=== PATIENT | female | born 1965 | race Caucasian/White ===

== ENCOUNTER 2021-04-02 08:52 | Emergency (ER) | payer MEDICARE, MEDICAID, SELFPAY ==
--- NOTE | ~2021-04-02 | XR_ITS ---
XR knee LT min 4V 04/02/2021 09:44 INDICATION: Left knee pain PROCEDURE: 5 views left knee COMPARISON: No prior studies for comparison. FINDINGS: Fracture, dislocation or subluxation is not identified. No significant joint effusion. The soft tissues appear within normal limits. No foreign bodies are identified. IMPRESSION: 1: NO ACUTE BONE OR JOINT ABNORMALITY IDENTIFIED. Reviewed, dictated and finalized at location A.
--- NOTE | 2021-04-02 09:12 | ED.LOWEXIN ---
HPI - Extremity Injury (Lower) General Chief Complaint: Extremity Injury, Lower Stated Complaint: Lt knee pain Time Seen by Provider: 04/02/21 09:12 Source: patient and RN notes reviewed History of Present Illness HPI Narrative: Patient is a 55-year-old female who presents the urgent care with complaints of left knee pain. Patient states approximately 2 weeks ago she fell at home, on a concrete floor with the brunt of her weight on the left knee. Patient states that she has been taking holistic pain medication . Patient denies of any new onset of swelling or fevers. States that the pain is only exacerbated with weightbearing/ambulating activities. No other acute complaints. No acute distress noted. Patient aware of the plan of care. Some parts of this dictation were generated by voice recognition software and may contain typographical and/or grammatical inaccuracies. Related Data Home Medications Medication Instructions Recorded Confirmed albuterol sulfate [Ventolin HFA] 2 puff INHALATION Q8H PRN 04/02/21 04/02/21 atorvastatin 10 mg PO DAILY 04/02/21 04/02/21 lamotrigine 200 mg PO DAILY 04/02/21 04/02/21 meloxicam 15 mg PO DAILY 04/02/21 04/02/21 omeprazole 40 mg PO DAILY 04/02/21 04/02/21 tiotropium bromide [Spiriva with 18 mcg INHALATION DAILY 04/02/21 04/02/21 HandiHaler] valsartan-hydrochlorothiazide 1 tablet PO DAILY 04/02/21 04/02/21 venlafaxine 150 mg PO DAILY 04/02/21 04/02/21 Allergies Allergy/AdvReac Type Severity Reaction Status Date / Time adhesive tape Allergy Unknown Unknown Verified 04/02/21 09:33 diclofenac Allergy Unknown Unknown Verified 04/02/21 09:33 hyoscyamine Allergy Unknown Unknown Verified 04/02/21 09:33 latex Allergy Unknown Rash Verified 04/02/21 09:33 levofloxacin Allergy Unknown Rash Verified 04/02/21 09:33 phenazopyridine Allergy Unknown Unknown Verified 04/02/21 09:33 Review of Systems Review of Systems: Narrative: CONSTITUTIONAL: Denies fever, chills, or sweats. EYES: Denies visual changes, redness, or discharge. ENT: Denies rhinorrhea, congestion, sore throat, or otalgia. CARDIOVASCULAR: Denies chest pain, palpitations, or edema. RESPIRATORY: Denies cough or dyspnea. GASTROINTESTINAL: Denies abdominal pain, nausea, vomiting, or diarrhea. GENITOURINARY: Denies dysuria or hematuria. SKIN: Denies rash or itching. MUSCULOSKELETAL: Reports of anterior left knee pain NEUROLOGIC: Denies headache, numbness, or weakness. All other systems reviewed are negative, except as documented in HPI. [facility] Family History Family History (Updated 02/21/19 @ 08:28 by DOCTOR UNKNOWN) Mother Hypertension Family history of arthritis Sibling Patient's sister is in good health Family history of colitis Family history of malignant neoplasm of bone Patient's sister is Father Family history of malignant neoplasm Social History Social History Alcohol intake: current Comments At the time of my signature, I reviewed and agree with the nursing past medical, surgical, social, and family history. There is no relevant family history pertinent to the patient complaint. Exam Narrative: Exam Narrative: GENERAL: This is a well-nourished, well-developed patient, in no apparent distress. HEAD: normocephalic, atraumatic. EYES: PERRL. Sclera clear/white. Vision is grossly intact. EARS: External ears normal NOSE: External nose normal with no obvious nasal discharge, nares without redness, no rhinorrhea. THROAT: Mucous membranes moist NECK: Neck supple CARDIOVASCULAR: Regular rate and rhythm without murmurs, gallops, or rubs. RESPIRATORY: Clear to auscultation. Breath sounds equal bilaterally. No wheezes, rales, or rhonchi. SKIN: warm, intact with no suspicious lesions or rash, good texture and turgor. NEURO: awake, alert, and oriented to person, place and time. There were no obvious focal neurologic abnormalities. EXTREMITIES: Moderate tenderness to the left anterior patella without any ob
[2021-04-02 09:15] VITALS: BP 155/88; PULSE 86; RESP 20; TEMP 36.7; O2SAT 100
[2021-04-02 09:46] VITALS: BP 155/88; PULSE 86; RESP 20; TEMP 36.7; O2SAT 100
== END 2021-04-02 10:03 | disposition home or self-care (01) ==
PROVIDERS: Emergency Provider Nurse Practitioner Family; PCP Family Medicine
DX: S80.02XA Contusion of left knee, initial encounter (principal); W19.XXXA Unspecified fall, initial encounter; E78.00 Pure hypercholesterolemia, unspecified; I10 Essential (primary) hypertension; K21.9 Gastro-esophageal reflux disease without esophagitis; F41.9 Anxiety disorder, unspecified; F31.9 Bipolar disorder, unspecified
CPT/HCPCS: 73564; 99213; G0463

== ENCOUNTER 2023-04-23 12:14 | Emergency (ER) | payer OTHER, MEDICAID, SELFPAY ==
[2023-04-23 12:23] VITALS: BP 136/90; PULSE 90; RESP 16; TEMP 36.3; O2SAT 99
--- NOTE | 2023-04-23 13:09 | ED.GENADULT ---
HPI - General Adult General Chief complaint: Ear Stated complaint: Left Ear Pain Source: patient Mode of arrival: ambulatory Limitations: no limitations History of Present Illness HPI narrative: Patient presents for evaluation of left sided ear pain for the past 4 days. She indicates she woke from sleep with her symptoms. She reports hearing loss on the left. She has tinnitus as well. She does not appreciate any drainage. No fever, chills, nausea, vomiting. She smokes a half pack per day. She has had allergy symptoms that include sinus congestion and rhinorrhea, both of which preceded the left ear pain. Related Data Home Medications Medication Instructions Recorded Confirmed albuterol sulfate 90 mcg/actuation 2 puff inhalation Q8H PRN 04/02/21 04/02/21 aerosol inhaler (Ventolin HFA) Shortness Of Breath Or Wheezing atorvastatin 10 mg tablet 10 mg PO DAILY 04/02/21 04/02/21 lamotrigine 200 mg tablet 200 mg PO DAILY 04/02/21 04/02/21 meloxicam 15 mg tablet 15 mg PO DAILY 04/02/21 04/02/21 omeprazole 40 mg capsule,delayed 40 mg PO DAILY 04/02/21 04/02/21 release tiotropium bromide 18 mcg capsule 18 mcg inhalation DAILY 04/02/21 04/02/21 with inhalation device (Spiriva with HandiHaler) valsartan 320 1 tablet PO DAILY 04/02/21 04/02/21 mg-hydrochlorothiazide 25 mg tablet venlafaxine 150 mg 150 mg PO DAILY 04/02/21 04/02/21 capsule,extended release 24 hr vitamin E (dl, acetate) 180 mg 400 unit PO DAILY 04/02/21 04/02/21 (400 unit) capsule Allergies Allergy/AdvReac Type Severity Reaction Status Date / Time adhesive tape Allergy Unknown Unknown Verified 04/02/21 09:33 diclofenac Allergy Unknown Unknown Verified 04/02/21 09:33 hyoscyamine Allergy Unknown Unknown Verified 04/02/21 09:33 latex Allergy Unknown Rash Verified 04/02/21 09:33 levofloxacin Allergy Unknown Rash Verified 04/02/21 09:33 phenazopyridine Allergy Unknown Unknown Verified 04/02/21 09:33 Review of Systems Review of Systems: CONSTITUTIONAL: Denies fever, chills, or sweats. EYES: Denies visual changes, redness, or discharge. ENT: Reports sinus congestion and rhinorrhea. Reports left-sided ear pain, tinnitus, and hearing loss CARDIOVASCULAR: Denies chest pain, palpitations, or edema. RESPIRATORY: Denies cough or dyspnea. GASTROINTESTINAL: Denies abdominal pain, nausea, vomiting, or diarrhea. GENITOURINARY: Denies dysuria or hematuria. SKIN: Denies rash or itching. MUSCULOSKELETAL: Denies back pain, joint pain, or myalgia. NEUROLOGIC: Denies headache, numbness, dizziness, or weakness. PSYCHIATRIC: Denies anxiety or depression. PMFSH Past Medical History Medical History No pertinent past medical history Surgical History Surgical History No pertinent past surgical history Family History Family History Mother Hypertension Family history of arthritis Sibling Patient's sister is in good health Family history of colitis Family history of malignant neoplasm of bone Patient's sister is Father Family history of malignant neoplasm Social History Social History Smoking packs per day: 0.5 Smoking cigarettes per day: 10.0 Smoking status: Current every day smoker Alcohol intake: current Substance use: never Gender identity (if verbalized by the patient): Female Exam Narrative: GENERAL: Well-appearing, well-nourished, and in no acute distress. HEAD: Normocephalic, atraumatic. EYES: PERRLA and EOMI. ENT: Nares clear, no rhinorrhea or epistaxis. Mucous membranes moist. Oropharynx without tonsillar hypertrophy exudate or other lesions. There is clear fluid in the left ear canal which obscures visualization of the left tympanic membrane. NECK: Supple. No adenopathy or
== END 2023-04-23 13:20 | disposition home or self-care (01) ==
PROVIDERS: Emergency Provider Nurse Practitioner
DX: H66.92 Otitis media, unspecified, left ear (principal); H72.92 Unspecified perforation of tympanic membrane, left ear; F17.210 Nicotine dependence, cigarettes, uncomplicated
CPT/HCPCS: 99213; G0463

== ENCOUNTER 2023-06-27 15:01 | Outpatient (CLI) | payer OTHER, MEDICAID, SELFPAY ==
--- NOTE | ~2023-06-27 | XR_ITS ---
XR hip RT min 2V 06/27/2023 15:23 Indication: Right hip pain Procedure: 2 views right hip Comparison: No prior studies for comparison. Findings: There is a nondisplaced fracture involving the acetabulum of the right pelvis. Osteopenia. No other definite fracture is identified. Consider correlation with CT. There is an IUD in the pelvis . Impression: 1: Nondisplaced fracture of the right acetabulum. Consider correlation with CT. Reviewed, dictated and finalized at location B. Impression: 1: Nondisplaced fracture of the right acetabulum. Consider correlation with CT.
[2023-06-27 19:52] LABS: Vitamin D 25 Hydroxy 34.4 ng/mL
== END 2023-06-27 15:02 | disposition home or self-care (01) ==
PROVIDERS: PCP Nurse Practitioner Adult Health; Visit Provider Nurse Practitioner Adult Health
DX: S32.491A Other specified fracture of right acetabulum, initial encounter for closed fracture (principal); E55.9 Vitamin D deficiency, unspecified; M25.551 Pain in right hip
CPT/HCPCS: 36415; 73502; 82306

== ENCOUNTER 2023-06-29 13:09 | Outpatient (CLI) | payer OTHER, MEDICAID, SELFPAY ==
[2023-06-29 19:28] LABS: Appearance Urine Cloudy (Clear); Bacteria Urine 4+ /hpf; Bilirubin Urine Negative (Negative); Blood Urine Negative (Negative); Color Urine Yellow (Yellow); Glucose Urine UA Negative (Negative); Ketones Urine Negative (Negative); Leukocyte Esterase Ur 3+ LEU/UL (NEGATIVE); Nitrate Urine Positive (Negative); Non Pathogenic Casts 0-2; Protein Urine Negative (Negative); RBC Urine 0-2 /hpf (0-2); Specific Grav Ur 1.008 (1.001-1.035); Squamous Epithelial Cell Urine None seen /hpf (Few); Urobilinogen Urine 0.2 mg/dL (<2.0); WBC Urine 51-100 /hpf (0-3); pH Urine 7.5 (5.0-9.0)
[2023-06-29 19:31] LABS: Add Urine Microscopic? YES
== END 2023-06-29 13:10 | disposition home or self-care (01) ==
LOC: ANHBWCLAB 13:12
PROVIDERS: PCP Nurse Practitioner Adult Health; Visit Provider Nurse Practitioner Adult Health
DX: R39.9 Unspecified symptoms and signs involving the genitourinary system (principal)
CPT/HCPCS: 81001

== ENCOUNTER 2023-07-13 13:17 | Outpatient (CLI) | payer OTHER, MEDICAID, SELFPAY ==
[2023-07-13 19:50] LABS: Appearance Urine Turbid (Clear); Bacteria Urine 4+ /hpf; Bilirubin Urine Negative (Negative); Blood Urine Negative (Negative); Color Urine Yellow (Yellow); Glucose Urine UA Negative (Negative); Ketones Urine Negative (Negative); Leukocyte Esterase Ur 1+ LEU/UL (NEGATIVE); Need Manual Microscopic Reviewed; Nitrate Urine Negative (Negative); Protein Urine Negative (Negative); Specific Grav Ur 1.017 (1.001-1.035); Squamous Epithelial Cell Urine Occasional /hpf (Few); WBC Urine 51-100 /hpf (0-3)
[2023-07-13 20:20] LABS: Add Urine Microscopic? YES
== END 2023-07-13 13:18 | disposition home or self-care (01) ==
PROVIDERS: PCP Nurse Practitioner Adult Health; Visit Provider Nurse Practitioner Adult Health
DX: R39.9 Unspecified symptoms and signs involving the genitourinary system (principal)
CPT/HCPCS: 81001

== ENCOUNTER 2023-07-20 13:52 | Outpatient (CLI) | payer OTHER, MEDICAID, SELFPAY ==
--- NOTE | ~2023-07-20 | CT_ITS ---
Noncontrast CT scan of the right hip Clinical history: Right acetabular fracture TECHNIQUE: Axial noncontrast imaging of the right hip was performed. Sagittal and coronal reformatted images were constructed. Dose reduction technique was used on this scan by utilizing automated expos ure control and iterative reconstruction technique. The dose-length product (DLP) was 817.69 mGy-cm. Findings: No distinct fracture identified. No dislocation seen. Right hip joint space is preserved. Musculature about the right hip is unremarkable. No soft tissue mass or fluid collection seen. IMPRESSION: No definite fracture identified. Consider MR to best evaluate for nondisplaced occult fracture, as in dicated. Reviewed, dictated and finalized at location . IMPRESSION: No definite fracture identified. Consider MR to best evaluate for nondisplaced occult fracture, as indicated.
== END 2023-07-20 13:53 | disposition home or self-care (01) ==
PROVIDERS: PCP Nurse Practitioner Adult Health; Visit Provider Nurse Practitioner
DX: S32.401A Unspecified fracture of right acetabulum, initial encounter for closed fracture (principal); X58.XXXA Exposure to other specified factors, initial encounter
CPT/HCPCS: 73700

== ENCOUNTER 2023-09-21 14:07 | Outpatient (CLI) | payer OTHER, MEDICAID, SELFPAY ==
--- NOTE | ~2023-09-21 | XR_ITS ---
XR abdomen/kub 1V 09/21/2023 14:21 INDICATION: Lower abdomen pain TECHNIQUE: KUB COMPARISON: None FINDINGS: Bowel gas pattern is normal. Moderate colonic fecal loading. There is no evidence of free a ir, mass, organomegaly, ascites or obstruction. No abnormal calculi are seen. The bones appear inta ct. There is an IUD in the pelvis. IMPRESSION: 1: No acute abdominal abnormality identified. Reviewed, dictated and finalized at location B. INATION EQUIPMENT OPERATOR
[2023-09-21 19:16] LABS: Appearance Urine Cloudy (Clear); Bacteria Urine 4+ /hpf; Bilirubin Urine Negative (Negative); Blood Urine Negative (Negative); Color Urine Yellow (Yellow); Glucose Urine UA Negative (Negative); Ketones Urine Negative (Negative); Leukocyte Esterase Ur 1+ LEU/UL (NEGATIVE); Nitrate Urine Negative (Negative); Non Pathogenic Casts 0-2; Protein Urine Negative (Negative); RBC Urine 0-2 /hpf (0-2); Specific Grav Ur 1.017 (1.001-1.035); Squamous Epithelial Cell Urine Occasional /hpf (Few); WBC Urine 21-50 /hpf (0-3); pH Urine 6.5 (5.0-9.0)
[2023-09-21 19:26] LABS: Add Urine Microscopic? YES
== END 2023-09-21 14:08 | disposition home or self-care (01) ==
PROVIDERS: PCP Nurse Practitioner Adult Health; Visit Provider Nurse Practitioner Adult Health
DX: M54.9 Dorsalgia, unspecified (principal)
CPT/HCPCS: 74018; 81001

== ENCOUNTER 2024-02-27 14:33 | Outpatient (CLI) | payer OTHER, MEDICAID, SELFPAY ==
--- NOTE | ~2024-02-27 | XR_ITS ---
XR knee LT 3V DATE: 02/27/2024 15:09 INDICATION: Chronic medial left knee pain TECHNIQUE: 3 views COMPARISON: None FINDINGS: No fracture or dislocation or joint effusion. No periosteal reaction or bone destruction. N o radiopaque intra-articular loose body or, calcinosis. Joint spaces are relatively preserved. IMPRESSION: No significant abnormality Reviewed, dictated and finalized at location A. IMPRESSION: No significant abnormality
== END 2024-02-27 14:34 | disposition home or self-care (01) ==
LOC: ANHBWCIMG 14:35
PROVIDERS: PCP Nurse Practitioner Adult Health; Visit Provider Nurse Practitioner Adult Health
DX: M25.562 Pain in left knee (principal)
CPT/HCPCS: 73562

== ENCOUNTER 2024-03-15 15:00 | Outpatient (CLI) | payer OTHER, MEDICAID, SELFPAY ==
[2024-03-15 20:06] LABS: Appearance Urine Cloudy (Clear); Bacteria Urine 4+ /hpf; Bilirubin Urine Negative (Negative); Blood Urine Negative (Negative); Color Urine Yellow (Yellow); Glucose Urine UA Negative (Negative); Ketones Urine Negative (Negative); Leukocyte Esterase Ur 1+ LEU/UL (Negative); Nitrate Urine Negative (Negative); Non Pathogenic Casts 0-2; Protein Urine Negative (Negative); RBC Urine 0-2 /hpf (0-2); Specific Grav Ur 1.017 (1.001-1.035); Squamous Epithelial Cell Urine Occasional /hpf (Few); pH Urine 8.5 (5.0-9.0)
[2024-03-15 20:11] LABS: Add Urine Microscopic? YES
== END 2024-03-15 15:01 | disposition home or self-care (01) ==
PROVIDERS: PCP Nurse Practitioner Adult Health; Visit Provider Nurse Practitioner Adult Health
DX: R39.9 Unspecified symptoms and signs involving the genitourinary system (principal)
CPT/HCPCS: 81001; 87077; 87086; 87088; 87181

== ENCOUNTER 2024-04-16 14:29 | Outpatient (CLI) | payer OTHER, MEDICAID, SELFPAY ==
[2024-04-16 20:08] LABS: Appearance Urine Cloudy (Clear); Bacteria Urine 4+ /hpf; Bilirubin Urine Negative (Negative); Blood Urine Negative (Negative); Color Urine Yellow (Yellow); Glucose Urine UA Negative (Negative); Ketones Urine Negative (Negative); Leukocyte Esterase Ur 3+ LEU/UL (Negative); Nitrate Urine Positive (Negative); Protein Urine Negative (Negative); RBC Urine 0-2 /hpf (0-2); Specific Grav Ur 1.016 (1.001-1.035); Squamous Epithelial Cell Urine None Seen /hpf (Few); WBC Urine >100 /hpf (0-3)
[2024-04-16 20:17] LABS: Add Urine Microscopic? YES
== END 2024-04-16 14:30 | disposition home or self-care (01) ==
PROVIDERS: PCP Nurse Practitioner Adult Health; Visit Provider Nurse Practitioner Adult Health
DX: R39.9 Unspecified symptoms and signs involving the genitourinary system (principal)
CPT/HCPCS: 81001; 87077; 87086; 87088; 87186

== ENCOUNTER 2024-08-27 11:16 | Outpatient (CLI) | payer OTHER, MEDICAID, SELFPAY ==
--- NOTE | ~2024-08-27 | XR_ITS ---
XR hand RT 2V Ordering provider: Evangelina Babcock APRN History: . Pain base of right thumb into wrist . Comparison: None. FINDINGS: BONES: No acute fracture or dislocation. JOINT SPACES: Narrowing of the distal interphalangeal joints. SOFT TISSUES: Normal. IMPRESSION: No acute osseous abnormality right hand. Narrowing of the distal interphalangeal joints. Reviewed, dictated and finalized at location A. CULTURE SPECIALIST
--- NOTE | ~2024-08-27 | XR_ITS ---
XR wrist RT 2V Ordering provider: Evangelina Babcock APRN History: . Pain, base of right thumb into wrist no injury . Comparison: None. FINDINGS: BONES: No acute fracture or dislocation. No definite scaphoid fracture. JOINT SPACES: Narrowing of the radiocarpal joint. SOFT TISSUES: Normal. IMPRESSION: No acute osseous abnormality right wrist. Reviewed, dictated and finalized at location A. ING CHECKER
== END 2024-08-27 11:17 | disposition home or self-care (01) ==
PROVIDERS: PCP Nurse Practitioner Adult Health; Visit Provider Nurse Practitioner Adult Health
DX: M25.841 Other specified joint disorders, right hand (principal); M25.531 Pain in right wrist; M79.641 Pain in right hand
CPT/HCPCS: 73100; 73120

== ENCOUNTER 2025-01-14 12:00 | Outpatient (CLI) | payer OTHER, MEDICAID, SELFPAY ==
--- OUTSIDE RECORDS SUMMARY | 2025-01-14 13:20 | XMS_ITS | Referral Summary ---
Author Organization [facility] [address] [facility] [address] Address [address] [place] [address] Care Team Providers Care Senior Clinical Sas Programmer Name Role Phone Huber Contreras MD Primary Care Provider [phone] Kylee Martines NP Unavailable [phone] Luma Gibson Unavailable [phone] Allergies Active Allergy Reactions Criticality Noted Date Comments Adhesive Tape-Silicones Rash Medium 10/03/2016 Capsaicin Unknown Cladribine Unknown 11/05/2022 Diclofenac Fever Medium Not fever but became really hot and sweaty Hyoscyamine Sulfate Unknown 10/03/2016 Latex Rash Medium Levofloxacin Unknown Phenazopyridine Hives Medium Medications valsartan-hydro chlorothiazide (DIOVAN-HCT) 320-25 mg per tablet Take 1 tablet by mouth nightly 2 9 Active omeprazole (PriLOSEC) 40 mg capsule Take 1 capsule (40 mg total) by mouth nightly 9 Active venlafaxine XR (EFFEXOR-XR) 150 mg 24 hr capsule Take 1 capsule (150 mg total) by mouth nightly 9 Active lamoTRIgine (LaMICtal) 200 mg tablet Take 1 tablet (200 mg total) by mouth nightly 2 9 Active VENTOLIN HFA 90 mcg/actuation inhaler Inhale 2 puffs every 4 (four) hours as needed 3 9 Active simvastatin (ZOCOR) 20 mg tablet Take 1 tablet (20 mg total) by mouth nightly 2 Active cholecalciferol 25 mcg (1,000 unit) tablet Take 1 tablet (1,000 Units total) by mouth nightly Active predniSONE (DELTASONE) 10 mg tabletIndicatio ns:ovalle's palsy Take 60mg daily for 7 days, followed by taper of 50mg on day 8, 40mg day 9, 30mg day 10, 20mg day 11, 10mg day 12 57 tablet 3 Active diclofenac sodium (VOLTAREN) 1 % gel Apply 2 g topically 4 (four) times a day 20 g 3 Active Active Problems Problem Noted Date Diagnosed Date 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 Bipolar disorder 04/26/2023 HTN (hypertension) 04/26/2023 Sleep apnea 04/26/2023 Morbid obesity 04/26/2023 Cocaine dependence 04/26/2023 Mixed hyperlipidemia 04/26/2023 COPD (chronic obstructive pulmonary disease) 08/2023 Overview (04/26/2023): PFT OBSTRUCTION, PERSISTENT TOBACCO ABUSE Severe recurrent major depre ssion without psychotic features 04/26/2023 Overview (04/26/2023): VENLAFAXINE Frequent UTI 04/26/2023 Trigger thumb of right hand 01/04/2023 Overview (01/04/2023): Added automatically from request for surgery [id number] Immunizations Immunization Administration Dates Next Due Tdap 07/29/2024() Social History Tobacco Use Types Packs/Day Years Used Date Smoking Tobacco: Every Day Cigarettes 0.5 35 Smokeless Tobacco: Never Tobacco Cessation:Ready to Q uit: Not Asked; Counseling Given: Not Answered Alcohol Use Standard Drinks/Week Comments Yes 0 (1 standard drink = 0.6 oz pur e alcohol) socially AUDIT-C Answer Date Recorded Q1: How often do you have a drink containing alc ohol? 2-3 times a week 04/27/2023 Q2: How many drinks containi ng alcohol do you have on a typical day when you are drinking? 5 or 6 04/27/2023 Q3: How often do you have si x or more drinks on one occasion? Weekly 04/27/2023 Personal Safety Answer Date Recorded Have you ever been in or are you currently in a harmful physical or emotional relationship or is someone making you feel afraid or unsafe? 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 Gender Identity Not on file Sexual Orientation Not on file Last Filed Vital Signs Vital Sign Reading Time Taken Comments Blood Pressure 159/100 07/29/2024 8:30 PM CDT Pulse 92 07/29/2024 8:09 PM CDT Temperature 36.7 C (98.1 F) 07/29/2024 8:09 PM CDT Respiratory Rate 20 07/29/2024 8:09 PM CDT Oxygen Saturation 99% 07/29/2024 8:09 PM CDT Inhaled Oxygen Concentration - - Weight 94.4 kg (208 lb 1.8 oz) 07/29/2024 8:09 P M CDT Height 157.5 cm (5' 2 ) 07/29/2024 8:09 PM CDT Body Mass Index 38.06 07/29/2024 8:09 PM CDT Plan of Treatment Not on file Insurance [facility] Member Subscriber Plan / Payer (Ef fective 2021-Present) Name:Kimberly Bolton Johana Relation to Subscriber:Self Name:Kimberly Bolton Payer ID:[id number] (NAIC) Type:MEDICARE RISK OTHER Address: [address] [place] [id number] [employer] [facility] Member Subscriber Plan / Payer (Ef fective 2021-Present) Name:HoangKimberly Johana Relation to Subscriber:Self Name:HoangKimberly Johana Payer ID:[id number] (NAIC) Type:MEDICARE RISK OTHER Address: [address] [place] [id number] [employer] Advance Directives For more information, please contact: [phone] * Full Code (Latest Code Status on File) Date Activated Date Inactivated Comments 04/26/2023 8:42 PM 04/27/2023 2:23 PM Care Teams Senior Clinical Sas Programmer Relationship Specialty Start Date End Date Huber Contreras MD [address] [place] [address] PCP - General Internal Medicine 12/01/21 Kylee Martines NP [address] [place] [address] Nurse Practitioner Internal Medicine 12/01/21 Luma Gibson PA [address] [place] [address] Orthopedic Surgery 01/07/23
--- OUTSIDE RECORDS SUMMARY | 2025-01-14 13:20 | XMS_ITS | Clinical Summary ---
Author Organization [facility] [address] [facility] [address] Address [address] [place] [address] Care Team Providers Care Sales Operations Director Name Role Phone Huber Contreras MD Primary Care Provider [phone] Kylee Martines NP Unavailable [phone] Luma Gibson Unavailable [phone] Allergies Active Allergy Reactions Criticality Noted Date [...] (01/04/2023): Added automatically from request for surgery [id number] Immunizations Immunization Administration Dates Next Due Tdap 07/29/2024() Surgical History Surgery Date Site/Laterality Comments SHOULDER SURGERY 10/17/1993 - 10/16/1994 Right HERNIA REPAIR 10/17/1985 - 10/16/1986 TRIGGER FINGER RELEASE Right Medical History Medical History Date Comments Acid reflux HTN (hypertension) Mixed hyperlipidemia Frequent UTI Asthma Sleep apnea PONV (postoperative nausea and vomiting) Bipolar disorder (HCC) Severe recurrent major depre ssion without psychotic features (HCC) VENLAFAXINE Anxiety Morbid obesity (HCC) Cocaine dependence (HCC) COPD (chronic obstructive pu lmonary disease) (HCC) PFT OBSTRUCTION, PERSISTENT TOBACCO ABUSE Arthritis Family History Medical History Relation Name Comments Heart disease Father Hyperlipidemia Father Hypertension Father Arthritis Mother Heart disease Mother Hyperlipidemia Mother Hypertension Mother Relation Name Status Comments Father Mother Alive Social History Tobacco Use Types Packs/Day Years [...] on file 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 Gender Identity Not on file Sexual Orientation Not on file Obstetrics History Last Filed Vital Signs Vital Sign Reading [...] 07/29/2024 8:09 PM CDT Plan of Treatment Health Maintenance Due Date Last Done Comments Breast Cancer Screening-Mammogram 1967 Cervical Cancer Screening 1967 Colon Cancer Screening-Colonoscopy 1967 Depression Screening 1967 Hepatitis C Screening 1967 DTaP/Tdap/Td Vaccine (1 - Tdap) 1978 Hepatitis B Screening 1985 Regular Well Visit/Exam 18-64 1985 Zoster Vaccine (1 of 2) 2017 Pneumococcal vaccine <65 (2 of 2 - PCV) 08/18/2021 08/18/2020 Influenza Vaccine (#1) 2024 0, 09/10/2019, 08/24/2015 Insurance [facility] Advance Directives For more information, please contact: [phone] * Full Code (Latest Code Status on File) Date Activated Date Inactivated Comments 04/26/2023 8:42 PM 04/27/2023 2:23 PM Care Teams Sales Operations Director Relationship Specialty Start [place] [address] [place] [id number] PCP - General Internal Medicine 12/01/21 Kylee Martines NP [facility] [place] [address] Nurse Practitioner Internal Medicine 12/01/21 Luma Gibson PA [address] [place] [address] Orthopedic Surgery 01/07/23
[2025-01-14 18:28] LABS: Basophils Absolute Auto 0.1 K/mm3 (0.0-0.1); Basophils Percent Auto 1.3 % (0.2-1.2); Eosinophils Absolute Auto 0.2 K/mm3 (0-0.3); Eosinophils Percent Auto 2.4 % (0-4.4); Hematocrit 43.6 % (37.0-47.0); Hemoglobin 13.8 g/dL (12.0-15.0); Immature Granulocyte Absolute 0.03 K/mm3 (0.00-0.031); Immature Granulocyte Percent A 0.4 % (0-0.5); Lymphocytes Absolute Auto 2.29 K/mm3 (0.9-3.2); Mean Corpuscular HGB Conc 31.7 g/dl (32-36); Mean Corpuscular Hemoglobin 27.4 pg (26-34); Mean Corpuscular Volume 86.7 fl (80-100); Mean Platelet Volume 9.5 fl (7.4-10.4); Monocytes Absolute Auto 0.8 K/mm3 (0.1-0.6); Monocytes Percent Auto 9.6 % (2.6-8.5); Neutrophils Absolute Auto 4.8 K/mm3 (1.3-6.7); Neutrophils Percent Auto 58.3 % (45.5-73.1); Platelet Count Result 418 k/mm3 (150-375); Red Blood Count 5.03 M/mm3 (4.2-5.4); Red Cell Distribution Width 14.6 % (11.5-14.5); White Blood Count 8.2 K/mm3 (4.5-10.0)
[2025-01-14 18:43] LABS: Alanine Aminotransferase 15 U/L (6-35); Albumin Level 4.8 g/dL (3.5-5.1); Alkaline Phosphatase 87 U/L (38-126); Anion Gap 12 mmol/L (4-12); Aspartate Amino Transferase 20 U/L (14-36); Bilirubin,Total 0.5 mg/dL (0.2-1.3); Blood Urea Nitrogen 12 mg/dL (7-17); Carbon Dioxide 29 mmol/L (22-30); Chloride 98 mmol/L (98-107); Cholesterol 217 mg/dL (0-200); Estimated Glomerular Filt Rate > 60; Glucose 101 mg/dL (65-110); HDL Direct 99 mg/dL; Potassium 3.7 mmol/L (3.4-5.0); Sodium 139 mmol/L (137-145); Triglycerides 96 mg/dL (<150)
[2025-01-14 18:54] LABS: LDL Cholesterol Direct 100 mg/dL
[2025-01-14 19:00] LABS: Vitamin D 25 Hydroxy 26.4 ng/mL
[2025-01-14 19:42] LABS: Free T4 Free Thyroxine Reflex 1.36 ng/dL (0.78-2.19)
== END 2025-01-14 12:01 | disposition home or self-care (01) ==
LOC: ANHBWCLAB 12:02
PROVIDERS: PCP Nurse Practitioner Adult Health; Visit Provider Nurse Practitioner Adult Health
DX: E78.5 Hyperlipidemia, unspecified (principal); E55.9 Vitamin D deficiency, unspecified; Z51.81 Encounter for therapeutic drug level monitoring
CPT/HCPCS: 36415; 80053; 80061; 82306; 82607; 84439; 84443; 84480; 85025

== ENCOUNTER 2025-01-16 11:50 | Outpatient (CLI) | payer OTHER, MEDICAID, SELFPAY ==
--- NOTE | ~2025-01-16 | XR_ITS ---
EXAMINATION: SACRUM/COCCYX DATE: 01/16/2025 12:12 INDICATION: Tail bone pain and low back pain after fall TECHNIQUE: Three views sacrum/coccyx FINDINGS: No prior studies for comparison. There is no displaced fracture of the sacrum. The coccyx demonstrates overall normal morphology with out acute angulation.There is lower lumbar spondylosis with grade 1 degenerative spondylolisthesis at L5-S1. IMPRESSION: 1. No acute displaced osseous abnormality of the sacrum. Suspicion for occult or nondisplaced sacral fracture can either be evaluated with CT or MRI. 2. Grossly normal morphology to the coccyx without acute angulation. However, due to the wide range of normal variation of the coccyx, acute injury would be best evaluated by clinical examination and patient's symptoms. Reviewed, dictated and finalized at location A.
--- NOTE | ~2025-01-16 | XR_ITS ---
Lumbosacral Spine: AP and lateral views Clinical History: Pain Findings: The normal lordotic curve is maintained. The vertebral bodies and posterior elements are i ntact. There are mild degenerative disc changes in the lumbar spine. There is advanced facet arthropa thy throughout the lumbar spine. The sacroiliac joints are normally outlined. Impression: Diffuse, advanced facet arthropathy throughout the lumbar spine. Reviewed, dictated and finalized at location . Impression: Diffuse, advanced facet arthropathy throughout the lumbar spine.
--- NOTE | ~2025-01-16 | XR_ITS ---
Right wrist Technique: PA and lateral views were obtained. Clinical History: Pain Findings: No acute fracture or dislocation is seen. Osseous alignment is anatomic. Joint spaces are p reserved. Soft tissues are unremarkable. Impression: Unremarkable right wrist radiographs. Reviewed, dictated and finalized at location M. Impression: Unremarkable right wrist radiographs.
--- OUTSIDE RECORDS SUMMARY | 2025-01-16 13:19 | XMS_ITS | Encounter Summary ---
Author Organization [facility] Address [address] [place] [address] Phone Care Team Providers Care Optical Technician Name Role Phone Lazaro Lopez MD Primary Care Provider [phone] Reason for Visit * Reason Comments Medication Refill Encounter Details Date Type Department Care Team (Late st Contact Info) Description 04/11/2022 Refill [facility] - Family Medicine [facility] [address] [place] [address] Lazaro Lopez MD [address] [place] [address] Medication Refill Social History Tobacco Use Types Packs/Day Years Used Date Smoking Tobacco: Every Day Cigarettes Smokeless Tobacco: Never Alcohol Use Standard Drinks/Week Comments Yes 0 (1 standard drink = 0.6 oz pur e alcohol) socially PHQ-2 Answer Date Recorded PHQ-2 Score 24 06/15/2019 Education Answer Date Recorded What is the highest level of school you have completed or the highest degree you have received? Associate degree: occupational, technical, or vocational program 06/12/2020 Sexually Active Control Partners Comments Not Currently Comments No Sex and Gender Information Value Date Recorded Sex Assigned at Not on file Legal Sex Female 8:49 PM CDT Gender Identity Not on file Sexual Orientation Not on file documented as of this encounter Miscellaneous Notes * Telephone Encounter - Marilia Chou RN - 04/14/2022 8:16 AM CDT Attempt made to schedule patient. Medication failed the protocol, provider to review and approve the medication order if appropriate. Requested Prescriptions Pending Prescriptions Disp Refills lamoTRIgine (LaMICtal) 200 MG Tablet [Pharmacy Med Name: LAMOTRIGINE 200 MG TABLET] 30 Tablet 0 Sig: TAKE 1 TABLET BY MOUTH EVERY DAY Not Delegated - Anticonvulsants Excluding Benzodiazepines Protocol Failed - 04/11/2022 7:36 AM Failed - This refill cannot be delegated Failed - Visit with relevant provider in past 12 months or upcoming 90 days Recent Visits No visits were found meeting these conditions. Showing recent visits within past 365 days and meeting all other requirements Future Appointments No visits were found meeting these conditions. Showing future appointments within next 90 days and meeting all other requirements omeprazole (PriLOSEC) 40 MG CAPSULE DELAYED RELEASE [Pharmacy Med Name: OMEPRAZOLE DR 40 MG CAPSULE] 60 Capsule 0 Sig: TAKE 1 CAPSULE BY MOUTH TWICE A DAY Proton Pump Inhibitors Protocol Failed - 04/11/2022 7:36 AM Failed - Visit with relevant provider in past 12 months or upcoming 90 days Recent Visits No visits were found meeting these conditions. Showing recent visits within past 365 days and meeting all other requirements Future Appointments No visits were found meeting these conditions. Showing future appointments within next 90 days and meeting all other requirements Passed - No positive test in the past 12 months or most recent test was negative Passed - No active on record * Telephone Encounter - Michell Gould RMA - 04/13/2022 8:48 AM CDT Voicemail not set up * Telephone Encounter - Marilia Chou RN - 04/12/2022 11:51 AM CDT Patient needs an appointment with PCP documented in this encounter Plan of Treatment Not on file documented as of this encounter Visit Diagnoses Diagnosis Gastroesophageal reflux disease with esophagitis documented in this encounter Additional Health Concerns Assessment Noted Time PHQ-9 Depression Total Score: 24 019 1:00 PM CDT documented as of this encounter Care Teams Optical Technician Relationship Specialty Start Date End Date Lazaro Lopez MD PCP - General Family Medicine 06/06/19 01/09/24 documented as of this encounter
--- OUTSIDE RECORDS SUMMARY | 2025-01-16 13:19 | XMS_ITS | Clinical Summary ---
Author Organization [facility] Address [address] [place] [address] Phone Care Team Providers Care Pension Administrator Name Role Phone Unavailable Primary Care Provider Unavailabl e Allergies Active Allergy Reactions Criticality Noted Date Comments Capsaicin Itching 06/06/2019 Diclofenac Unknown 10/03/2016 Hyoscyamine Sulfate Unknown 10/03/2016 Latex Unknown 10/03/2016 Levofloxacin In D5w Hives 06/06/2019 Phenazopyridine Hcl Unknown 10/03/2016 Adhesive Tape Unknown 10/03/2016 Medications Vitamin E 400 UNIT Tablet Take 400 Units by mouth daily. Active Spiriva HandiHaler 18 MCG Capsule INHALE 1 CAPSULE BY MOUTH DAILY 90 Capsule 2 1 Active venlafaxine (EFFEXOR-XR) 150 MG CAPSULE SR 24 HR TAKE ONE CAPSULE BY MOUTH EVERY DAY 90 Capsule 3 1 Active other by Other route. Jf benfotmine Active valsartan-hydroC HLOROthiazide (DIOVAN-HCT) 320-25 MG Tablet TAKE ONE TABLET BY MOUTH EVERY DAY 90 Tablet 1 1 Active meloxicam (MOBIC) 15 MG TabletIndication s:Plantar fasciitis of left foot TAKE 1 TAB BY MOUTH DAILY. 90 Tablet 3 1 Active nystatin 047780 UNIT/GM Powder APPLY 3 TIMES DAILY. APPLY TO AFFECTED AREA DIRECTED. 60 g 2 1 Active atorvastatin (LIPITOR) 10 MG Tablet Take 1 Tablet by mouth daily. 90 Tablet 2 Active lamoTRIgine (LaMICtal) 200 MG Tablet TAKE 1 TABLET BY MOUTH EVERY DAY 30 Tablet 2 Active omeprazole (PriLOSEC) 40 MG CAPSULE DELAYED RELEASEIndicatio ns:Gastroesophag eal reflux disease with esophagitis TAKE 1 CAPSULE BY MOUTH TWICE A DAY 60 Capsule 2 Active albuterol 108 (90 Base) MCG/ACT Aerosol Solution take 2 Puffs by inhalation every 4 hours as needed for Wheezing. NEEDS OFFICE VISIT FOR FURTHER REFILLS. 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 06/12/2020 Immunizations Immunization Administration Dates Next Due Influenza Vaccine, Quadrivalent, PF 08/18/2020,1 11/10/2018 Influenza, Injectable, Quadrivalent 08/24/2015 Pneumococcal Vaccine Adult - 23 Valent 0 Family History Medical History Relation Name Comments Elevated Lipids Father Hypertension Father Abdominal Aortic Aneurysm Mother Relation Name Status Comments Father Mother Alive Social History Tobacco Use Types Packs/Day Years Used Date Smoking Tobacco: Every Day Cigarettes Smokeless Tobacco: Never Tobacco Cessation:Ready to Q uit: No; Counseling Given: Yes Alcohol Use Standard Drinks/Week Comments Yes 0 [...] Sign Reading Time Taken Comments Blood Pressure 152/113 02/25/2021 2:33 PM CDT Pulse 98 02/25/2021 2:33 PM CDT Temperature 36.4 C (97.6 F) 02/25/2021 2:33 PM CDT Respiratory Rate 20 02/25/2021 2:33 PM CDT Oxygen Saturation 99% 02/25/2021 2:33 PM CDT Inhaled Oxygen Concentration - - Weight 106.6 kg (235 lb) 02/25/2021 2:33 PM CDT Height 157.5 cm (5' 2 ) 02/25/2021 2:33 PM CDT Body Mass Index 42.98 02/25/2021 2:33 PM CDT Plan of Treatment Health Maintenance Due Date Last Done Comments Hepatitis C Virus (HCV) Screening 1967 Mammogram 1967 TdaP Immunization 1967 Hepatitis B Immunization (1 of 3 - 19+ 3-dose series) 1986 Pap Smear 1988 Cervical Cancer Screening (CCS) 1997 HPV/Cotest 1997 Colonoscopy 2012 Colorectal Cancer Screening 2012 Cologuard 2017 Immunochemical Fecal Occult Blood 2017 Zoster Immunization (1 of 2) 2017 Pneumococcal Immunization (5 0+ years) (2 of 2 - PCV) 08/18/2021 08/18/2020 Influenza Immunization (#1) 06/17/202411/2019, 09/10/2019, 08/24/2015 SARS-COV-2 Immunization ( - season) 2024 Respiratory Syncytial Virus (RSV) Immunization (Adult) (1 - 1-dose 75+ series) 2042 Pneumococcal Immunization Combined Discontinued 08/18/2020 Meningococcal Immunization (ACWY) Aged Out No longer eligible based on patient's age to complete this topic Rotavirus Immunization Aged Out No lo nger eligible based on patient's age to complete this topic Insurance MEDICARE [place]ICA[place]
--- OUTSIDE RECORDS SUMMARY | 2025-01-16 13:19 | XMS_ITS | Encounter Summary ---
Author Organization [facility] Address [address] [place] [address] Phone Care Team Providers Care Java Application Developer Name Role Phone Lazaro Lopez MD Primary Care Provider [phone] Reason for Visit * Reason Comments Medication Refill Encounter Details Date Type Department Care Team (Late st Contact Info) Description 04/24/2021 Refill [facility] [address] [place], [place] [id number] Lazaro Lopez MD [address] [place] [address] Medication Refill Social History Tobacco Use Types [...] Telephone Encounter - Marilia Chou RN - 04/24/2021 12:36 PM CDT Medication failed the protocol, provider to review and approve the medication order if appropriate. Requested Prescriptions Pending Prescriptions Disp Refills valsartan-hydroCHLOROthiazide (DIOVAN-HCT) 320-25 MG Tablet [Pharmacy Med Name: VALSARTAN-HCTZ 320-25 MG TA 320-25 Tablet] 90 Tablet 1 Sig: TAKE ONE TABLET BY MOUTH EVERY DAY ANGIOTENSIN-II RECEPTOR BLOCKERS-DIURETICS COMBO PROTOCOL Failed - 04/24/2021 8:31 AM Failed - Serum potassium on record in past 12 months POTASSIUM Date Value Ref Range Status 02/25/2021 3.4 (L) 3.5 - 5.1 mmol/L Final Passed - Serum sodium on record in past 12 months SODIUM Date Value Ref Range Status 02/25/2021 138 136 - 144 mmol/L Final Passed - BP on record in the past year Clinician-entered: BP Readings from Last 3 Encounters: 02/25/21 (!) 152/113 12/26/20 124/80 12/22/20 134/90 Patient-entered: No data recorded Passed - No positive test in the past 12 months or most recent test was negative Passed - Visit with relevant provider in past year or upcoming 90 days Recent Visits Date Type Provider Dept 12/26/20 Office Visit Lazaro Lopez MD [facility] 08/20/20 Office Visit Lazaro Lopez MD [facility] 07/18/20 Office Visit Lazaro Lopez MD [facility] 06/12/20 Office Visit Lazaro Lopez MD [facility] Showing recent visits within past 365 days and meeting all other requirements Future Appointments Date Type Provider Dept 06/29/21 Appointment Lazaro Lopez MD [facility] Showing future appointments within next 90 days and meeting all other requirements Passed - No active on record Passed - GFR on record in past 12 months GFR, EST. NONAFRICAN Date Value Ref Range Status 02/25/2021 >60 >=60 Final documented in this encounter Plan of Treatment Not on file documented as of this encounter Visit Diagnoses Not on filedocumented in this encounter Additional Health Concerns Assessment Noted Time PHQ-9 Depression Total Score: 24 019 1:00 PM CDT documented as of this encounter Care Teams Java Application Developer Relationship Specialty Start Date End Date Lazaro Lopez MD PCP - General Family Medicine 06/06/19 01/09/24 documented as of this encounter
--- OUTSIDE RECORDS SUMMARY | 2025-01-16 13:19 | XMS_ITS | Encounter Summary ---
Author Organization [facility] Address [address] [place] [address] Phone Care Team Providers Care Steel Crane Operator Name Role Phone Lazaro Lopez MD Primary Care Provider [phone] Reason for Visit * Reason Comments Medication Refill Encounter Details Date Type Department Care Team (Late st Contact Info) Description 03/10/2021 Refill [facility] Medicine [facility] [address] [place] [address] Lazaro Lopez MD [address] [place] [address] Medication Refill Social History Tobacco Use Types [...] on file Sexual Orientation Not on file COVID-19 Exposure Response Date Recorded In the last month, have you been in contact with someone who was confirmed or suspected to have Coronavirus / COVID-19? No / Unsure 02/25/2021 2:34 PM CDT documented as of this encounter Miscellaneous Notes * Telephone Encounter - Marilia Chou RN - 03/10/2021 2:58 PM CDT 90 days supply given to patient on 03/10/21 documented in this encounter Plan of Treatment Not on file documented as of this encounter Visit Diagnoses Diagnosis Gastroesophageal reflux disease with esophagitis documented in this encounter Additional Health Concerns Assessment Noted Time PHQ-9 Depression Total Score: 24 019 1:00 PM CDT documented as of this encounter Care Teams Steel Crane Operator Relationship Specialty Start Date End Date Lazaro Lopez MD PCP - General Family Medicine 06/06/19 01/09/24 documented as of this encounter
--- OUTSIDE RECORDS SUMMARY | 2025-01-16 13:19 | XMS_ITS | Encounter Summary ---
Author Organization [facility] Address [address] [place] [address] Phone Care Team Providers Care Barrel Repairer Name Role Phone Lazaro Lopez MD Primary Care Provider [phone] Reason for Visit * Reason Onset Date Comments Medication Refill 11/20/2021 Encounter Details Date Type Department Care Team (Late st Contact Info) Description 11/20/2021 Refill [facility] Medicine [facility] [place] [address] [place] [address] Lazaro Lopez MD [address] [place] [address] Medication Refill Social History Tobacco Use Types [...] Telephone Encounter - Marilia Chou RN - 11/20/2021 1:59 PM CST Medication failed the protocol, provider to review and approve the medication order if appropriate. Requested Prescriptions Pending Prescriptions Disp Refills atorvastatin (LIPITOR) 10 MG Tablet 90 Tablet 0 Sig: Take 1 Tablet by mouth daily. Hmg CoA Reductase Inhibitors Protocol Failed - 11/20/2021 11:12 AM Failed - Lipid panel in past 12 months No results found for: LDL, HDLCHOLESTE, CHOLESTEROL, TRIGLYCRIDES, VLDL, CHDL, HDLNON Passed - No positive test in the past 12 months or most recent test was negative Passed - Visit with relevant provider in past 12 months or upcoming 90 days Recent Visits Date Type Provider Dept 12/26/20 Office Visit Lazaro Lopez MD [facility] Showing recent visits within past 365 days and meeting all other requirements Future Appointments No visits were found meeting these conditions. Showing future appointments within next 90 days and meeting all other requirements Passed - No active on record omeprazole (PriLOSEC) 40 MG CAPSULE DELAYED RELEASE 180 Capsule 0 Sig: Take 1 Capsule by mouth 2 times daily. Proton Pump Inhibitors Protocol Passed - 11/20/2021 11:12 AM Passed - No positive test in the past 12 months or most recent test was negative Passed - Visit with relevant provider in past 12 months or upcoming 90 days Recent Visits Date Type Provider Dept 12/26/20 Office Visit Lazaro Lopez MD [facility] Showing recent visits within past 365 days and meeting all other requirements Future Appointments No visits were found meeting these conditions. Showing future appointments within next 90 days and meeting all other requirements Passed - No active on record GNMENT DESK ASSISTANT documented in this encounter Plan of Treatment Not on file documented as of this encounter Visit Diagnoses Diagnosis Gastroesophageal reflux disease with esophagitis documented in this encounter Additional Health Concerns Assessment Noted Time PHQ-9 Depression Total Score: 24 019 1:00 PM CDT documented as of this encounter Care Teams Barrel Repairer Relationship Specialty Start Date End Date Lazaro Lopez MD PCP - General Family Medicine 06/06/19 01/09/24 documented as of this encounter
--- OUTSIDE RECORDS SUMMARY | 2025-01-16 13:19 | XMS_ITS | Encounter Summary ---
Author Organization [facility] Address [address] [place] [address] Phone Care Team Providers Care Double End Chucking Machine Operator Name Role Phone Lazaro Lopez MD Primary Care Provider [phone] Reason for Visit * Reason Comments Medication Refill Encounter Details Date Type Department Care Team (Late st Contact Info) Description 02/13/2022 Refill [facility] - [facility] [address] [place] [address] Lazaro Lopez MD [address] [place] [address] Medication Refill Social History Tobacco Use Types [...] Telephone Encounter - Marilia Chou RN - 02/15/2022 10:24 AM CDT PRN medication requires review from provider Per nursing clinical judgement, provider to review and approve the medication(s) order(s) if appropriate. Requested Prescriptions Pending Prescriptions Disp Refills Ventolin HFA 108 (90 Base) MCG/ACT Aerosol Solution [Pharmacy Med Name: VENTOLIN HFA 90 MCG INHALER] 36 g 1 Sig: INHALE 2 PUFFS BY MOUTH EVERY 4 HOURS NEEDED FOR WHEEZING Short Acting Inhaled Beta-Agonists Protocol Failed - 02/13/2022 7:47 AM Failed - Visit with relevant provider in past 12 months or upcoming 90 days Recent Visits No visits were found meeting these conditions. Showing recent visits within past 365 days and meeting all other requirements Future Appointments No visits were found meeting these conditions. Showing future appointments within next 90 days and meeting all other requirements documented in this encounter Plan of Treatment Not on file documented as of this encounter Visit Diagnoses Not on filedocumented in this encounter Additional Health Concerns Assessment Noted Time PHQ-9 Depression Total Score: 24 019 1:00 PM CDT documented as of this encounter Care Teams Double End Chucking Machine Operator Relationship Specialty Start Date End Date Lazaro Lopez MD PCP - General Family Medicine 06/06/19 01/09/24 documented as of this encounter
--- OUTSIDE RECORDS SUMMARY | 2025-01-16 13:19 | XMS_ITS | Encounter Summary ---
Author Organization [facility] Address [address] [place] [address] Phone Care Team Providers Care Electrotyper Name Role Phone Lazaro Lopez MD Primary Care Provider [phone] Reason for Visit * Reason Comments Medication Refill Encounter Details Date Type Department Care Team (Late st Contact Info) Description 05/07/2022 Refill [facility] [address] [place] [address] Lazaro Lopez MD [address] [place] [address] Medication Refill Social History Tobacco Use Types [...] Telephone Encounter - Marilia Chou RN - 05/07/2022 1:41 PM CDT Medication failed the protocol, provider to review and approve the medication order if appropriate. Requested Prescriptions Pending Prescriptions Disp Refills albuterol 108 (90 Base) MCG/ACT Aerosol Solution [Pharmacy Med Name: ALBUTEROL HFA (VENTOLIN) INH] 18 g 2 Sig: TAKE 2 PUFFS BY MOUTH EVERY 4 HOURS NEEDED FOR WHEEZE Short Acting Inhaled Beta-Agonists Protocol Failed - 05/07/2022 12:38 AM Failed - Visit with relevant provider [...] Noted Time PHQ-9 Depression Total Score: 24 06/13/ 019 1:00 PM CDT documented as of this encounter Care Teams Electrotyper Relationship Specialty Start Date End Date Lazaro Lopez MD PCP - General Family Medicine 06/06/19 01/09/24 documented as of this encounter
--- OUTSIDE RECORDS SUMMARY | 2025-01-16 13:19 | XMS_ITS | Encounter Summary ---
Author Organization [facility] Address [address] [place] [address] Phone Care Team Providers Care Cocktail Lounge Manager Name Role Phone Lazaro Lopez MD Primary Care Provider [phone] Reason for Visit * Reason Comments Medication Refill Encounter Details Date Type Department Care Team (Late st Contact Info) Description 05/04/2021 Refill [facility] [address] [place], [place] [id number] Lazaro Lopez MD [address] [place] [address] Medication Refill Social History Tobacco [...] Telephone Encounter - Marilia Chou RN - 05/04/2021 4:37 PM CDT PRN medication requires review from provider Per nursing clinical judgement, provider to review and approve the medication(s) order(s) if appropriate. Requested Prescriptions Pending Prescriptions Disp Refills Ventolin HFA 108 (90 Base) MCG/ACT Aerosol Solution [Pharmacy Med Name: VENTOLIN HFA 90 MCG [id number] (90 BAS Aerosol] 36 g 2 Sig: INHALE 2 PUFFS BY MOUTH EVERY 4 HOURS NEEDED FOR WHEEZING Short Acting Inhaled Beta-Agonists Protocol Passed - 05/04/2021 8:29 AM Passed - Visit with relevant provider in [...] documented as of this encounter Care Teams Cocktail Lounge Manager Relationship Specialty Start Date End Date Lazaro Lopez MD PCP - General Family Medicine 06/06/19 01/09/24 documented as of this encounter
--- OUTSIDE RECORDS SUMMARY | 2025-01-16 13:19 | XMS_ITS | Encounter Summary ---
Author Organization [facility] Address [address] [place] [address] Phone Care Team Providers Care Cyber Defense Analyst Name Role Phone Lazaro Lopez MD Primary Care Provider [phone] Reason for Visit * Reason Comments Medication Refill Encounter Details Date Type Department Care Team ([facility] st Contact Info) Description 01/12/2021 Refill [facility] [address] [place], [place] [id number] Lazaro Lopez MD [address] [place], [place] [id number] Medication Refill Social History Tobacco Use Types [...] have Coronavirus / COVID-19? No / Unsure 12/26/2020 2:28 PM CUSTOMS COLLECTOR documented as of this encounter Miscellaneous Notes * Telephone Encounter - Marilia Chou RN - 01/12/2021 12:31 PM CDT Medication failed the protocol, provider to review and approve the medication order if appropriate. Requested Prescriptions Pending Prescriptions Disp Refills Ventolin HFA 108 (90 Base) MCG/ACT Aerosol Solution [Pharmacy Med Name: VENTOLIN HFA 90 MCG [id number] (90 BAS Aerosol] 36 g 2 Sig: INHALE 2 PUFFS BY MOUTH EVERY 4 HOURS NEEDED FOR WHEEZING Pulmonology: Beta Agonists - Albuterol & Levalbuterol Failed - 01/12/2021 8:36 AM Failed - May refill 2 inhalers, 0 refills one time since last office visit. May refill #50 nebulizer vials, 0 refills for albuterol or #48 vials, 0 refills for Xopenex one time since last office visit. Passed - Valid encounter within last 6 months Past Office Visits Recent Outpatient Visits 2 weeks ago Hypercholesterolemia [facility] Lazaro Wheat MD 4 months ago Meralgia paresthetica, right lower limb [facility] Lazaro Wheat MD 5 months ago Plantar fasciitis of left foot [facility] Lazaro Wheat MD 7 months ago Gastroesophageal reflux disease with esophagitis [facility] Lazaro Wheat MD 1 year ago Essential hypertension [facility] Lazaro Wheat MD Upcoming Appointments Future Appointments In 5 months Lazaro Lopez MD [facility] Donovan Saldaña [facility] COORDINATOR - Recent and Past Visits Recent Visits Date Type Provider Dept 12/26/20 Office Visit Lazaro Lopez MD [facility] 08/20/20 Office Visit Lazaro Lopez MD [facility] 07/18/20 Office Visit Lazaro Lopez MD [facility] 06/12/20 Office Visit Lazaro Lopez MD [facility] 12/10/19 Office Visit Lazaro Lopez MD [facility] 10/29/19 Office Visit Naomi Aleman, DIGITAL DATA ANALYST, CASINO FLOOR RUNNER [facility] Showing recent visits within past 460 days with a meds authorizing provider and meeting all other requirements Future Appointments No visits were found meeting these conditions. Showing future appointments within next 90 days with a meds authorizing provider and meeting all other requirements Passed - Last BP in normal range BP Readings from Last 1 Encounters: 12/26/20 124/80 documented in this encounter Plan of Treatment Not on file documented as of this encounter Visit Diagnoses Not on filedocumented in this encounter Additional Health Concerns Assessment Noted Time PHQ-9 Depression Total Score: 24 019 1:00 PM CDT documented as of this encounter Care Teams Cyber Defense Analyst Relationship Specialty Start Date End Date Lazaro Lopez MD PCP - General Family Medicine 06/06/19 01/09/24 documented as of this encounter
--- OUTSIDE RECORDS SUMMARY | 2025-01-16 13:19 | XMS_ITS | Encounter Summary ---
Author Organization [facility] Address [address] [place] [address] Phone Care Team Providers Care Videographer Name Role Phone Lazaro Lopez MD Primary Care Provider Reason for Visit * Reason Comments Medication Refill Encounter Details Date Type Department Care Team (Late st Contact Info) Description 09/18/2021 Refill [facility] [address] [place], [place] [phone] Lazaro Lopez MD [address] [place] [address] Medication Refill Social History Tobacco [...] Telephone Encounter - Marilia Chou RN - 09/18/2021 10:15 AM CST Medication failed the protocol, provider to review and approve the medication order if appropriate. Requested Prescriptions Pending Prescriptions Disp Refills atorvastatin (LIPITOR) 10 MG Tablet [Pharmacy Med Name: ATORVASTATIN 10 MG TABLET 10 Tablet] 90 Tablet 0 Sig: TAKE ONE TABLET BY MOUTH EVERY DAY Hmg CoA Reductase Inhibitors Protocol Failed - 09/18/2021 8:14 AM Failed - Lipid panel in past [...] CAPSULE DELAYED RELEASE [Pharmacy Med Name: OMEPRAZOLE [address] CAP 40 Capsule] 180 Capsule 0 Sig: TAKE 1 CAPSULE BY MOUTH 2 TIMES DAILY. Proton Pump Inhibitors Protocol Passed - 09/18/2021 8:14 AM Passed - No positive test in [...] requirements Passed - No active on record LE EXAMINER documented in this encounter Plan of Treatment Not on file documented as of this encounter Visit Diagnoses Diagnosis Gastroesophageal reflux disease with esophagitis documented in this encounter Additional Health Concerns Assessment Noted Time PHQ-9 Depression Total Score: 24 019 1:00 PM CDT documented as of this encounter Care Teams Videographer Relationship Specialty Start Date End Date Lazaro Lopez MD PCP - General Family Medicine 06/06/19 01/09/24 documented as of this encounter
--- OUTSIDE RECORDS SUMMARY | 2025-01-16 13:19 | XMS_ITS | Encounter Summary ---
Author Organization [facility] Address [address] [place] [address] Phone Care Team Providers Care Access Nurse Name Role Phone Lazaro Lopez MD Primary Care Provider [phone] Reason for Visit * Reason Comments Medication Refill Encounter Details Date Type Department Care Team ([facility] st Contact Info) Description 10/14/2020 Refill [facility] [address] [place], [place] [phone] Lazaro Lopez MD [address] [place], [place] [id number] Medication Refill Social History Tobacco Use Types [...] or suspected to have Coronavirus / COVID-19? Yes 10/08/2020 4:00 PM CLAY TRANSPORTER documented as of this encounter Miscellaneous Notes * Telephone Encounter - Sehr, Marilia L, RN - 10/14/2020 1:52 PM CST The original prescription was discontinued on 09/19/2020 by Lazaro Lopez MD TRANSPORTER documented in this encounter Plan of Treatment Not on file documented as of this encounter Visit Diagnoses Not on filedocumented in this encounter Additional Health Concerns Assessment Noted Time PHQ-9 Depression Total Score: 24 019 1:00 PM CDT documented as of this encounter Care Teams Access Nurse Relationship Specialty Start Date End Date Lazaro Lopez MD PCP - General Family Medicine 06/06/19 01/09/24 documented as of this encounter
--- OUTSIDE RECORDS SUMMARY | 2025-01-16 13:19 | XMS_ITS | Encounter Summary ---
Author Organization [facility] Address [address] [place] [place] [address] Phone Care Team Providers Care Aluminum Fabrication Supervisor Name Role Phone Lazaro Lopez MD Primary Care Provider [phone] Reason for Visit * Reason Comments Medication Refill Encounter Details Date Type Department Care Team (Late st Contact Info) Description 07/20/2021 Refill [facility] [address] [place], [place] [id number] Lazaro Lopez MD [address] [place] [address] Medication Refill Social History Tobacco [...] Telephone Encounter - Marilia Chou RN - 07/20/2021 1:22 PM CDT PRN medication requires review from provider Per nursing clinical judgement, provider to review and approve the medication(s) order(s) if appropriate. Requested Prescriptions Pending Prescriptions Disp Refills valsartan-hydroCHLOROthiazide (DIOVAN-HCT) 320-25 MG Tablet [Pharmacy Med Name: VALSARTAN-HCT 320-25 MG TAB 320-25 Tablet] 90 Tablet 1 Sig: TAKE ONE TABLET BY MOUTH EVERY DAY ANGIOTENSIN-II RECEPTOR BLOCKERS-DIURETICS COMBO PROTOCOL Passed - 07/20/2021 11:07 AM Passed - Serum potassium on record in past [...] Ref Range Status 02/25/2021 >60 >=60 Final Ventolin HFA 108 (90 Base) MCG/ACT Aerosol Solution [Pharmacy Med Name: VENTOLIN HFA 90 MCG [id number] (90 BAS Aerosol] 36 g 2 Sig: INHALE 2 PUFFS BY MOUTH EVERY 4 HOURS NEEDED FOR WHEEZING Short Acting Inhaled Beta-Agonists Protocol Passed - 07/20/2021 11:07 AM Passed - Visit with relevant provider [...] 90 days and meeting all other requirements meloxicam (MOBIC) 15 MG Tablet [Pharmacy Med Name: MELOXICAM 15 MG TAB 15 Tablet] 90 Tablet 3 Sig: Take 1 Tab by mouth daily. NSAIDs Protocol Passed - 07/20/2021 11:07 AM Passed - Normal serum creatinine in past 12 months CREATININE, BLOOD Date Value Ref Range Status 02/25/2021 0.65 0.60 - 1.10 mg/dL Final Passed - No positive test in the [...] - No active on record Passed - No matching NSAID med order in past 45 days No matching medication orders between 06/05/2021 1:22 PM and 07/20/2021 1:22 PM Passed - AST less than 55 or ALT less than 90 in past 12 months SGOT (AST) Date Value Ref Range Status 02/25/2021 16 <=32 U/L Final SGPT (ALT) Date Value Ref Range Status 02/25/2021 12 <=41 U/L Final Passed - HGB greater than 10 or HCT greater than 30 in past 12 months HEMOGLOBIN (HGB) Date Value Ref Range Status 02/25/2021 11.3 (L) 12.0 - 15.8 g/dL Final HEMATOCRIT (HCT) Date Value Ref Range Status 02/25/2021 38.3 36.0 - 47.0 % Final documented in this encounter Plan of Treatment Not on file documented as of this encounter Visit Diagnoses Diagnosis Plantar fasciitis of left foot Plantar fascial fibromatosis documented in this encounter Additional Health Concerns Assessment Noted Time PHQ-9 Depression Total Score: 019 1:00 PM CDT documented as of this encounter Care Teams Aluminum Fabrication Supervisor Relationship Specialty Start Date End Date Lazaro Lopez MD PCP - General Family Medicine 06/06/19 01/09/24 documented as of this encounter
--- OUTSIDE RECORDS SUMMARY | 2025-01-16 13:19 | XMS_ITS | Encounter Summary ---
Author Organization [facility] Address [address] [place] [address] Phone Care Team Providers Care Mill Tender Washing Name Role Phone Lazaro Lopez MD Primary Care Provider [phone] Reason for Visit * Reason Onset Date Comments Medication Refill 11/03/2021 Encounter Details Date Type Department Care Team (Late st Contact Info) Description 11/03/2021 Refill [facility] - Family Medicine [facility] [address] [place] [address] Lazaro Lopez MD [address] [place] [address] Medication Refill Social History Tobacco Use Types [...] Telephone Encounter - Marilia Chou RN - 11/03/2021 3:30 PM CST Atorvastatin refilled for 90 days 09/18/21 Omeprazole refilled for 90 days 09/18/21 RATOR OPERATOR * Telephone Encounter - Adry Dennis - 11/03/2021 1:59 PM CST Received a faxed Rx request from pharmacy. Reordered refill medication(s) requested and pended for nurse and physician/MELISA review. Refill encounter routed to nurse Inkomerce[employer]Gekko for processing. RATOR OPERATOR documented in this encounter Plan of Treatment Not on file documented as of this encounter Visit Diagnoses Diagnosis Gastroesophageal reflux disease with esophagitis documented in this encounter Additional Health Concerns Assessment Noted Time PHQ-9 Depression Total Score: 24 06/13/ 019 1:00 PM CDT documented as of this encounter Care Teams Mill Tender Washing Relationship Specialty Start Date End Date Lazaro Lopez MD PCP - General Family Medicine 06/06/19 01/09/24 documented as of this encounter
--- OUTSIDE RECORDS SUMMARY | 2025-01-16 13:19 | XMS_ITS | Encounter Summary ---
Author Organization [facility] Address [address] [place] [address] Phone Care Team Providers Care Microsystems Engineer Name Role Phone Lazaro Lopez MD Primary Care Provider Reason for Visit * Reason Comments Medication Refill Encounter Details Date Type Department Care Team ([facility] st Contact Info) Description 03/11/2021 Refill [facility] [address] [place], [place] [id number] Lazaro Lopez MD [address] [place], [place] [id number] Medication Refill Social History Tobacco Use Types [...] Telephone Encounter - Marilia Chou RN - 03/12/2021 10:41 AM CDT The original prescription was discontinued on 12/22/2020 by Obed Saenz MD documented in this encounter Plan of Treatment Not on file documented as of this encounter Visit Diagnoses Not on filedocumented in this encounter Additional Health Concerns Assessment Noted Time PHQ-9 Depression Total Score: 24 019 1:00 PM CDT documented as of this encounter Care Teams Microsystems Engineer Relationship Specialty Start Date End Date Lazaro Lopez MD PCP - General Family Medicine 06/06/19 01/09/24 documented as of this encounter
--- OUTSIDE RECORDS SUMMARY | 2025-01-16 13:19 | XMS_ITS | Encounter Summary ---
Author Organization [facility] Address [address] [place] [address] Phone Care Team Providers Care Masonry Contractor Name Role Phone Lazaro Lopez MD Primary Care Provider [phone] Reason for Visit * Reason Comments Medication Refill Encounter Details Date Type Department Care Team ([facility] st Contact Info) Description 09/22/2020 Refill [facility] [address] [place], [place] [id number] Lazaro Lopez MD [address] [place], [place] [id number] Medication Refill Social History Tobacco Use Types [...] have Coronavirus / COVID-19? No / Unsure 09/05/2020 2:50 PM PUBLIC AFFAIRS MANAGER documented as of this encounter Miscellaneous Notes * Telephone Encounter - Chandler Choukrish Santana RN - 09/22/2020 10:23 AM CST Medication failed the protocol, provider to review and approve the medication order if appropriate. Requested Prescriptions Pending Prescriptions Disp Refills Ventolin HFA 108 (90 Base) MCG/ACT Aerosol Solution [Pharmacy Med Name: VENTOLIN HFA 90 MCG [id number] (90 BAS Aerosol] 36 g 2 Sig: INHALE 2 PUFFS BY MOUTH EVERY 4 HOURS NEEDED FOR WHEEZING Pulmonology: Beta Agonists - Albuterol & Levalbuterol Failed - 09/22/2020 9:23 AM Failed - May refill 2 inhalers, 0 refills one time since last office visit. May refill #50 nebulizer vials, 0 refills for albuterol or #48 vials, 0 refills for Xopenex one time since last office visit. Passed - Valid encounter within last 6 months Past Office Visits Recent Outpatient Visits 1 month ago Meralgia paresthetica, right lower limb [facility] Lazaro Ledbetter MD 2 months ago Plantar fasciitis of left foot [facility] Lazaro Ledbetter MD 3 months ago Gastroesophageal reflux disease with esophagitis [facility] Lazaro Wheat MD 9 months ago Essential hypertension [facility] Lazaro Ledbetter MD 10 months ago [facility]a [facility] right [facility] CRYPTOGRAPHIC TECHNICIAN Upcoming Appointments Future Appointments In 2 months Lazaro Lopez MD [facility] DORMITORY COUNSELOR - Recent and Past Visits Recent Visits Date Type Provider Dept 08/20/20 Office Visit Lazaro Lopez MD [facility] 07/18/20 Office Visit Lazaro Lopez MD [facility] 06/12/20 Office Visit Lazaro Lopez MD [facility] 12/10/19 Office Visit Lazaro Lopez MD [facility] 10/29/19 Office Visit Naomi Aleman APN, CRYPTOGRAPHIC TECHNICIAN [facility] 06/27/19 Office Visit Lazaro Lopez MD [facility] Showing recent visits within past 460 days with a meds authorizing provider and meeting all other requirements Future Appointments Date Type Provider Dept 12/08/20 Appointment Lazaro Lopez MD [facility] Showing future appointments within next 90 days with a meds authorizing provider and meeting all other requirements Passed - Last BP in normal range BP Readings from Last 1 Encounters: 08/20/20 122/64 IC AFFAIRS MANAGER documented in this encounter Plan of Treatment Not on file documented as of this encounter Visit Diagnoses Not on filedocumented in this encounter Additional Health Concerns Assessment Noted Time PHQ-9 Depression Total Score: 24 019 1:00 PM CDT documented as of this encounter Care Teams Masonry Contractor Relationship Specialty Start Date End Date Lazaro Lopez MD PCP - General Family Medicine 06/06/19 01/09/24 documented as of this encounter
--- OUTSIDE RECORDS SUMMARY | 2025-01-16 13:19 | XMS_ITS | Encounter Summary ---
Author Organization [facility] Address [address] [place] [address] Phone Care Team Providers Care Screen Printer Name Role Phone Lazaro Lopez MD Primary Care Provider [phone] Reason for Visit * Reason Comments Medication Refill Encounter Details Date Type Department Care Team (Late st Contact Info) Description 09/18/2021 Refill [facility] [address] [place] [address] Lazaro Lopez MD [address] [place] [address] Medication Refill Social History Tobacco Use Types [...] encounter Miscellaneous Notes * Telephone Encounter - Kaur Camacho RN - 09/19/2021 12:28 PM CST Medication failed the protocol, provider to review and approve the medication order if appropriate. Requested Prescriptions Pending Prescriptions Disp Refills nystatin [id number] UNIT/GM Powder [Pharmacy Med Name: NYSTOP [id number] UNIT/GM POWD [id number] Powder] 60 g 2 Sig: APPLY 3 TIMES DAILY. APPLY TO AFFECTED AREA DIRECTED. [facility] Off-Protocol Failed - 09/18/2021 3:56 PM Failed - Medication not assigned to a protocol, review manually. Passed - Valid encounter within last 12 months Past Office Visits Recent Outpatient Visits 8 months ago [facility] Lazaro Wheat MD 1 year ago Meralgia paresthetica, right lower limb [facility] Lazaro Wheat MD 1 year ago Plantar fasciitis of left foot [facility] Lazaro Wheat MD 1 year ago Gastroesophageal reflux disease with esophagitis [facility] Lazaro Wheat MD 1 year ago Essential hypertension [facility] Lazaro Wheat MD Upcoming Appointments NANOFABRICATION SPECIALIST - Recent and Past Visits Recent Visits [...] authorizing provider and meeting all other requirements Topical Antifungal Agents Protocol Passed - 09/18/2021 3:56 PM Passed - Visit with relevant provider in past 12 months or upcoming 90 days Recent Visits Date Type Provider Dept 12/26/20 Office Visit Lazaro Lopez MD [facility] Showing recent visits within past 365 days and meeting all other requirements Future Appointments No visits were found meeting these conditions. Showing future appointments within next 90 days and meeting all other requirements S PROGRAM COORDINATOR documented in this encounter Plan of Treatment Not on file documented as of this encounter Visit Diagnoses Not on filedocumented in this encounter Additional Health Concerns Assessment Noted Time PHQ-9 Depression Total Score: 24 019 1:00 PM CDT documented as of this encounter Care Teams Screen Printer Relationship Specialty Start Date End Date Lazaro Lopez MD PCP - General Family Medicine 06/06/19 01/09/24 documented as of this encounter
--- OUTSIDE RECORDS SUMMARY | 2025-01-16 13:19 | XMS_ITS | Clinical Summary ---
Author Organization [facility] [address] Address [address] [place] [address] Care Team Providers Care Mechanical Lead Name Role Phone Huber Contreras MD Primary Care Provider [phone] Kylee Martines NP Unavailable [phone] Luma Gibson Unavailable [phone] Allergies Active Allergy Reactions Criticality Noted Date [...] (01/04/2023): Added automatically from request for surgery [id number] Immunizations Immunization Administration Dates Next Due Tdap [...] on file Legal Sex Female 2:41 AM COUNTY DIRECTOR Gender Identity Not on file Sexual Orientation [...] 2 - PCV) 08/18/2021 08/18/2020 Influenza Vaccine (Season Ended) 2025 08/18/2020, 09/10/2019, 08/24/[address] [facility] Advance Directives For more information, please contact: [phone] * Full Code (Latest Code Status on File) Date Activated Date Inactivated Comments 04/26/2023 8:42 PM 04/27/2023 2:23 PM Care Teams Mechanical Lead Relationship Specialty Start Date End Date Huber Contreras MD [address] [place] [address] PCP - General Internal Medicine 12/01/21 Kylee Martines NP [address] [place] [address] Nurse Practitioner Internal Medicine 12/01/21 Luma Gibson PA [address] [place] [address] Orthopedic Surgery 01/07/23
--- OUTSIDE RECORDS SUMMARY | 2025-01-16 13:19 | XMS_ITS | Referral Summary ---
Author Organization [facility] [address] [facility] [address] Address [address] [place] [address] Care Team Providers Care Cattle Sticker Name Role Phone Huber Contreras MD Primary Care Provider [phone] Kylee Martines NP Unavailable [phone] Luma Gibson Unavailable [phone] Allergies Active Allergy Reactions Criticality Noted Date [...] (01/04/2023): Added automatically from request for surgery [id number] Immunizations Immunization Administration Dates Next Due Tdap [...] on file Legal Sex Female 2:41 AM DEFECTIVE CIGARETTE SLITTER Gender Identity Not on file Sexual Orientation [...] Plan of Treatment Not on file Insurance [facility] Member Subscriber Plan / Payer (Ef fective 2021-Present) Name:Kimberly Bolton Johana Relation to Subscriber:Self Name:Kimberly Bolton Payer ID:[id number] (NAIC) Type:MEDICARE RISK OTHER Address: [address] [place] [id number] [employer] [facility] Member Subscriber Plan / Payer (Ef fective 2021-Present) Name:HoangKimberly Johana Relation to Subscriber:Self Name:HoangKimberly Johana Payer ID:[id number] (NAIC) Type:MEDICARE RISK OTHER Address: [address] [place] [id number] [employer] Advance Directives For more information, please contact: [phone] * Full Code (Latest Code Status on File) Date Activated Date Inactivated Comments 04/26/2023 8:42 PM 04/27/2023 2:23 PM Care Teams Cattle Sticker Relationship Specialty Start Date End Date Huber Contreras MD [address] [place] [address] PCP - General Internal Medicine 12/01/21 Kylee Martines NP [address] [place] [address] Nurse Practitioner Internal Medicine 12/01/21 Luma Gibson PA [address] [place] [address] Orthopedic Surgery 01/07/23
--- OUTSIDE RECORDS SUMMARY | 2025-01-16 13:19 | XMS_ITS | Encounter Summary ---
Author Organization [facility] Address [address] [place] [address] Phone Care Team Providers Care Supervisor Research Shop Name Role Phone Lazaro Lopez MD Primary Care Provider [phone] Reason for Visit * Reason Comments Medication Refill Encounter Details Date Type Department Care Team (Late st Contact Info) Description 12/05/2020 Refill [facility] [address] [place] [address] Lazaro Lopez MD [address] [place], [place] [id number] Medication Refill Social History Tobacco Use Types [...] on file documented as of this encounter Plan of Treatment Not on file documented as of this encounter Visit Diagnoses Not on filedocumented in this encounter Additional Health Concerns Assessment Noted Time PHQ-9 Depression Total Score: 24 019 1:00 PM CDT documented as of this encounter Care Teams Supervisor Research Shop Relationship Specialty Start Date End Date Lazaro Lopez MD PCP - General Family Medicine 06/06/19 01/09/24 documented as of this encounter
--- OUTSIDE RECORDS SUMMARY | 2025-01-16 13:19 | XMS_ITS | Encounter Summary ---
Author Organization [facility] Address [address] [place] [address] Phone Care Team Providers Care Bell Valet Name Role Phone Lazaro Lopez MD Primary Care Provider [phone] Reason for Visit * Reason Comments Medication Refill Encounter Details Date Type Department Care Team (Late st Contact Info) Description 12/09/2020 Refill [facility] [address] [place], [place] [id number] Lazaro Lopez MD [address] [place] [address] Medication Refill Social History Tobacco [...] encounter Miscellaneous Notes * Telephone Encounter - Prisca Lackey RN - 12/10/2020 10:18 AM CST Medication failed the protocol, provider to review and approve the medication order if appropriate. Requested Prescriptions Pending Prescriptions Disp Refills venlafaxine (EFFEXOR-XR) 150 MG CAPSULE SR 24 HR [Pharmacy Med Name: VENLAFAXINE HCL ER 150 MG C 150 Capsule] 90 Capsule 3 Sig: TAKE ONE CAPSULE BY MOUTH EVERY DAY Not Delegated - Psychiatry: Antidepressants: Other Failed - 12/10/2020 10:18 AM Failed - This refill cannot be delegated Passed - Valid encounter within last 12 months Past Office Visits Recent Outpatient Visits 3 months ago Meralgia paresthetica, right lower limb [facility] Lazaro Ledbetter MD 4 months ago Plantar fasciitis of left foot [facility] Lazaro Ledbetter MD 6 months ago Gastroesophageal reflux disease with esophagitis [facility] Lazaro Ledbetter MD 1 year ago Essential [facility] 1 [facility] Meralgia paresthetica of right side [facility] Naomi Aleman APN, CHIEF EXECUTIVE OFFICER Upcoming Appointments Future Appointments In [address] [facility] In [facility] [address] [facility] Neurology [facility] STRIP CUTTER - Recent and Past Visits Recent Visits Date Type Provider Dept 08/20/20 Office Visit Lazaro Lopez MD [facility] 07/18/20 Office Visit Lazaro Lopez MD [facility] 06/12/20 Office Visit Lazaro Lopez MD [facility] 12/10/19 Office Visit Lazaro Lopez MD [facility] 10/29/19 Office Visit Naomi Aleman APN, CHIEF EXECUTIVE OFFICER [facility] Show[facility] recent visits within past 460 days with a meds authorizing provider and meeting all other requirements Future Appointments Date Type Provider Dept 12/19/20 Appointment Lazaro Lopez MD [facility] Showing future appointments within next 90 days with a meds authorizing provider and meeting all other requirements Passed - Last BP in normal range BP Readings from Last 1 Encounters: 08/20/20 122/64 gabapentin (NEURONTIN) 300 MG Capsule [Pharmacy Med Name: GABAPENTIN 300 MG CAPS 300 Capsule] 270 Capsule 0 Sig: TAKE 1 CAP BY MOUTH 3 TIMES DAILY. Neurology: Anticonvulsants Passed - 12/10/2020 10:18 AM Passed - Valid encounter within last 12 months Past Office Visits Recent Outpatient Visits 3 months ago Meralgia paresthetica, right lower limb [facility] Lazaro Ledbetter MD 4 months ago Plantar fasciitis of left foot [facility] Lazaro Ledbetter MD 6 months ago Gastroesophageal reflux disease with esophagitis [facility] 1 year ago Essential hypertension [facility] 1 year ago Meralgia paresthetica of right side [facility] Graham APN, CHIEF EXECUTIVE OFFICER Upcoming Appointments Future Appointments In [address] MD [facility] [address] [facility] Neu[facility] STRIP CUTTER - Recent and Past Visits Recent Visits Date Type Provider Dept 08/20/20 Office Visit Lazaro Lopez MD [facility] 07/18/20 Office Visit Lazaro Lopez MD [facility] 06/12/20 Office Visit Lazaro Lopez MD [facility] 12/10/19 Office Visit Lazaro Lopez MD [facility] 10/29/19 Office Visit Naomi Aleman APN, CHIEF EXECUTIVE OFFICER [facility] Showing recent visits within past 460 days with a meds authorizing provider and meeting all other requirements Future Appointments Date Type Provider Dept 12/19/20 Appointment Lazaro Lopez MD [facility] Showing future appointments within next 90 days with a meds authorizing provider and meeting all other requirements Signed Prescriptions Disp Refills Spiriva HandiHaler 18 MCG Capsule 90 Capsule 2 Sig: INHALE 1 CAPSULE BY MOUTH DAILY Pulmonology: Anticholinergic Agents Passed - 12/09/2020 11:17 AM Passed - Valid encounter within last 12 months Past Office Visits Recent Outpatient Visits 3 months ago Meralgia paresthetica, right lower limb [facility] 4 months ago Plantar fasciitis of left foot [facility] Lazaro Ledbetter MD 6 months ago Gastroesophageal reflux disease with esophagitis [facility] 1 year ago Essential hypertension [facility] 1 year ago Meralgia paresthetica of right side [facility] Naomi Aleman APN, CHIEF EXECUTIVE OFFICER Upcoming Appointments Future Appointments In 1 week Lazaro Lopez MD [facility], [facility] In 1 week Obed Saenz MD [facility] STRIP CUTTER - Recent and Past Visits Recent Visits Date Type Provider Dept 08/20/20 Office Visit Lazaro Lopez MD [facility] 07/18/20 Office Visit Lazaro Lopez MD [facility] 06/12/20 Office Visit Lazaro Lopez MD [facility] 12/10/19 Office Visit Lazaro Lopez MD [facility] 10/29/19 Office Visit Naomi Aleman APN, CHIEF EXECUTIVE OFFICER [facility] Showing recent visits within past 460 days with a meds authorizing provider and meeting all other requirements Future Appointments Date Type Provider Dept 12/19/20 Appointment Lazaro Lopez MD [facility] Showing future appointments within next 90 days with a meds authorizing provider and meeting all other requirements lamoTRIgine (LaMICtal) 200 MG Tablet 90 Tablet 3 Sig: TAKE ONE TABLET BY MOUTH EVERY DAY Neurology: Anticonvulsants Passed - 12/09/2020 11:17 AM Passed - Valid encounter within last 12 months Past Office Visits Recent Outpatient Visits 3 months ago Meralgia paresthetica, right lower limb [facility] 4 months ago Plantar fasciitis of left foot [facility] 6 months ago Gastroesophageal reflux disease with esophagitis [facility] 1 year ago Essential hypertension [facility] 1 year ago Meralgia paresthetica of right side [facility] Naomi Aleman APN, CHIEF EXECUTIVE OFFICER Upcoming Appointments Future Appointments In 1 week Lazrao Lopez MD [facility], [facility] In [address] [facility] Neurology [facility], [facility] STRIP CUTTER - Recent and Past Visits Recent Visits Date Type Provider Dept 08/20/20 Office Visit Lazaro Lopez MD [facility] 07/18/20 Office Visit Lazaro Lopez MD [facility] 06/12/20 Office Visit Lazaro Lopez MD [facility] 12/10/19 Office Visit Lazaro Lopez MD [facility] 10/29/19 Office Visit Naomi Aleman APN, [facility] Showing recent visits within past 460 days with a meds authorizing provider and meeting all other requirements Future Appointments Date Type Provider Dept 12/19/20 Appointment [facility] Show[facility] future appointments within next 90 days with a meds authorizing provider and meeting all other requirements E TESTER documented in this encounter Plan of Treatment Not on file documented as of this encounter Visit Diagnoses Not on filedocumented in this encounter Additional Health Concerns Assessment Noted Time PHQ-9 Depression Total Score: 24 019 1:00 PM CDT documented as of this encounter Care Teams Bell Valet Relationship Specialty Start Date End Date Lazaro Lopez MD PCP - General Family Medicine 06/06/19 01/09/24 documented as of this encounter
--- OUTSIDE RECORDS SUMMARY | 2025-01-16 13:19 | XMS_ITS | Encounter Summary ---
Author Organization [facility] Address [address] [place] [address] Phone Care Team Providers Care Tests Superintendent Name Role Phone Lazaro Lopez MD Primary Care Provider [phone] Reason for Visit * Reason Comments Medication Refill Encounter Details Date Type Department Care Team (Late st Contact Info) Description 2021 Refill [facility] [address] [place] [address] Lazaro Lopez MD [address] [place] [address] Medication Refill Social History Tobacco Use Types [...] Telephone Encounter - Marilia Chou RN - 2021 3:10 PM CDT Disp Refills Start End omeprazole (PriLOSEC) 40 MG CAPSULE DELAYED RELEASE 180 Capsule 0 06/18/2021 Sig - Route: Take 1 Capsule by mouth 2 times daily. - Oral Sent to pharmacy as: Omeprazole 40 MG Oral Capsule Delayed Release (PriLOSEC) Class: E Prescribe E-Prescribing Status: Receipt confirmed by pharmacy (06/18/2021 12:50 PM CDT) Order Questions ?? omeprazole (PriLOSEC) 40 MG CAPSULE DELAYED RELEASE [[id number]] 1303 Status: Active Mode: Ordering in Standing Orders mode Communicated by: Prisca Lackey RN Ordering user: Prisca Lackey RN 06/18/21 1250 Ordering provider: Lazaro Lopez MD Authorized by: Lazaro Lopez MD Frequency: BID 06/18/21 - Until Discontinued Released by: Prisca Lackey RN 06/18/21 1250 Diagnoses Gastroesophageal reflux disease with esophagitis [K21.00] Associated Diagnoses Gastroesophageal reflux disease with esophagitis Pharmacy [address] documented in this encounter Plan of Treatment Not on file documented as of this encounter Visit Diagnoses Diagnosis Gastroesophageal reflux disease with esophagitis documented in this encounter Additional Health Concerns Assessment Noted Time PHQ-9 Depression Total Score: 24 019 1:00 PM CDT documented as of this encounter Care Teams Tests Superintendent Relationship Specialty Start Date End Date Lazaro Lopez MD PCP - General Family Medicine 06/06/19 01/09/24 documented as of this encounter
--- OUTSIDE RECORDS SUMMARY | 2025-01-16 13:19 | XMS_ITS | Encounter Summary ---
Author Organization [facility] Address [address] [place] [address] Phone Care Team Providers Care Clinical Business Manager Name Role Phone Lazaro Lopez MD Primary Care Provider [phone] Reason for Visit * Reason Comments Medication Refill Encounter Details Date Type Department Care Team ([facility] st Contact Info) Description 03/09/2021 Refill [facility] [address] [place], [place] [id number] Lazaro Lopez MD [address] [place], [place] [id number] Medication Refill Social History Tobacco Use Types [...] Telephone Encounter - Marilia Chou RN - 03/09/2021 1:53 PM CDT The original prescription was discontinued on 12/22/2020 by Obed Saenz MD documented in this encounter Plan of Treatment Not on file documented as of this encounter Visit Diagnoses Not on filedocumented in this encounter Additional Health Concerns Assessment Noted Time PHQ-9 Depression Total Score: 019 1:00 PM CDT documented as of this encounter Care Teams Clinical Business Manager Relationship Specialty Start Date End Date Lazaro Lopez MD PCP - General Family Medicine 06/06/19 01/09/24 documented as of this encounter
== END 2025-01-16 11:51 | disposition home or self-care (01) ==
LOC: ANHBWCIMG 11:52
PROVIDERS: PCP Nurse Practitioner Adult Health; Visit Provider Nurse Practitioner Adult Health
DX: M54.50 Low back pain, unspecified (principal); M25.531 Pain in right wrist; W19.XXXA Unspecified fall, initial encounter
CPT/HCPCS: 72100; 72220; 73100

== ENCOUNTER 2025-02-04 11:35 | Outpatient (CLI) | payer OTHER, MEDICAID, SELFPAY ==
--- NOTE | ~2025-02-04 | US_ITS ---
EXAMINATION: US thyroid DATE: 02/04/2025 11:52 INDICATION: Abnormal thyroid function TECHNIQUE: Multiple ultrasound images of the thyroid were obtained. COMPARISON: None. FINDINGS: The right thyroid lobe measures 4.3 x 1.2 x 1.4 cm. The left thyroid lobe measures 3.8 x 1.2 x 1.4 cm. Within the mid pole of the left lobe of the thyroid gland is a 8 x 5 x 6 mm nodule: Composition -cystic or almost completely cystic Echogenicity - hypoechoic Shape - wider than tall Margin - smooth Echogenic foci - none. = TR1, benign The isthmus measures 0.3cm in anterior to posterior dimension. There is otherwise normal homogeneous echotexture throughout the remainder of the thyroid gland. No a dditional discrete nodules identified. Normal vascular flow is present. IMPRESSION: Benign nodule within the mid pole of the left lobe of the thyroid gland. Follow-up is not recommended, but may be performed. Reviewed, dictated and finalized at location A.
== END 2025-02-04 11:36 | disposition home or self-care (01) ==
LOC: MICIMG 11:36
PROVIDERS: PCP Nurse Practitioner Adult Health; Visit Provider Nurse Practitioner Adult Health
DX: R79.89 Other specified abnormal findings of blood chemistry (principal); E04.1 Nontoxic single thyroid nodule
CPT/HCPCS: 76536

== ENCOUNTER 2025-03-20 14:58 | Outpatient (CLI) | payer OTHER, MEDICAID, SELFPAY ==
--- OUTSIDE RECORDS SUMMARY | 2025-03-20 15:08 | XMS_ITS | Encounter Summary ---
Author Organization [facility] Address [address] [place] [address] Phone Care Team Providers Care District Attorney Name Role Phone Lazaro Lopez MD Primary Care Provider [phone] Reason for Visit * Reason Comments Medication Refill Encounter Details Date Type Department Care Team ([facility] st Contact Info) Description 01/12/2021 Refill [facility] [address] [place], [place] [id number] Lazaro Lopez MD [address] [place], [place] [id number] Medication Refill Social History Tobacco Use Types [...] COVID-19? No / Unsure 12/26/2020 2:28 PM KNIT GOODS CUTTER HAND documented as of this encounter Miscellaneous Notes * Telephone Encounter - Marilia Chou RN - 01/12/2021 12:31 PM CDT Medication failed the protocol, provider to review and approve the medication order if appropriate. Requested Prescriptions Pending Prescriptions Disp Refills Ventolin HFA 108 (90 Base) MCG/ACT Aerosol Solution [Pharmacy Med Name: VENTOLIN HFA 90 MCG [id number] (90 BAS Aerosol] 36 g 2 Sig: [...] Recent Outpatient Visits 2 weeks ago Hypercholesterolemia [facility] Lazaro Wheat MD 4 months ago Meralgia paresthetica, right lower limb [facility] Lazaro Wheat MD 5 months ago Plantar fasciitis of left foot [facility] Lazaro Wheat MD 7 months ago Gastroesophageal reflux disease with esophagitis [facility] Lazaro Wheat MD 1 year ago Essential hypertension [facility] Lazaro Wheat MD Upcoming Appointments Future Appointments In 5 months Lazaro Lopez MD [facility] Donovan Saldaña [employer] [employer] DEAL[employer]KER - Recent and Past Visits Recent Visits Date Type Provider Dept 12/26/20 Office Visit Lazaro Lopez MD [facility] 08/20/20 Office Visit Lazaro Lopez MD [facility] 07/18/20 Office Visit Lazaro Lopez MD [facility] 06/12/20 Office Visit Lazaro Lopez MD [facility] 12/10/19 Office Visit Lazaro Lopez MD [facility] 10/29/19 Office Visit Naomi Aleman, MEDICAL OFFICE TECHNOLOGIST, GUN SYNCHRONIZER [facility] Showing recent visits within past 460 days [...] documented as of this encounter Care Teams District Attorney Relationship Specialty Start Date End Date Lazaro Lopez MD PCP - General Family Medicine 06/06/19 01/09/24 documented as of this encounter
--- OUTSIDE RECORDS SUMMARY | 2025-03-20 15:08 | XMS_ITS | Encounter Summary ---
Author Organization [facility] Address [address] [place] [address] Phone Care Team Providers Care Bakery Products Checker Name Role Phone Lazaro Lopez MD Primary Care Provider [phone] Reason for Visit * Reason Comments Medication Refill Encounter Details Date Type Department Care Team (Late st Contact Info) Description 07/20/2021 Refill [facility] [address] [place], [place] [id number] Lazaro Lopez MD [address] [place] [address] Medication Refill Social History Tobacco [...] [Pharmacy Med Name: VENTOLIN HFA 90 MCG [id number] (90 BAS Aerosol] 36 g 2 Sig: [...] documented as of this encounter Care Teams Bakery Products Checker Relationship Specialty Start Date End Date Lazaro Lopez MD PCP - General Family Medicine 06/06/19 01/09/24 documented as of this encounter
--- OUTSIDE RECORDS SUMMARY | 2025-03-20 15:08 | XMS_ITS | Encounter Summary ---
Author Organization [facility] Address [address] [place] [address] Phone Care Team Providers Care Field Agronomist Name Role Phone Lazaro Lopez MD Primary Care Provider [phone] Reason for Visit * Reason Onset Date Comments Medication Refill 11/20/2021 Encounter Details Date Type Department Care Team (Late st Contact Info) Description 11/20/[address] [facility] - Family [facility] [address] [place] [address] Lazaro Lopez MD [address] [place] [address] Medication Refill Social History Tobacco Use Types [...] requirements Passed - No active on record LASTER documented in this encounter Plan of Treatment Not on file documented as of this encounter Visit Diagnoses Diagnosis Gastroesophageal reflux disease with esophagitis documented in this encounter Additional Health Concerns Assessment Noted Time PHQ-9 Depression Total Score: 24 019 1:00 PM CDT documented as of this encounter Care Teams Field Agronomist Relationship Specialty Start Date End Date Lazaro Lopez MD PCP - General Family Medicine 06/06/19 01/09/24 documented as of this encounter
--- OUTSIDE RECORDS SUMMARY | 2025-03-20 15:08 | XMS_ITS | Clinical Summary ---
Author Organization [facility] Address [address] [place] [address] Phone Care Team Providers Care Accounts Receivable Assistant Name Role Phone Unavailable Primary Care Provider [...] DAILY. 90 Tablet 3 1 Active nystatin [id number] UNIT/GM Powder APPLY 3 TIMES DAILY. APPLY [...] 2:33 PM CDT Height 157.5 cm (5' 2) 02/25/2021 2:33 PM CDT Body Mass Index [...] (2 of 2 - PCV) 08/18/2021 08/18/2020 SARS-COV-2 Immunization (1 - 2023- season) 2024 Influenza Immunization (Seas on Ended) 2025 08/18/2020, 09/10/2019, 08/24/2015 Respiratory Syncytial Virus (RSV) Immunization (Adult) (1 - 1-dose 75+ series) 2042 Pneumococcal Immunization Combined Discontinued 08/18/2020 Human Papillomavirus (HPV) Immunization Aged Out No longer eligible based on patient's age to complete this topic Meningococcal Immunization (ACWY) Aged Out No longer eligible based on patient's age to complete this topic Rotavirus Immunization Aged Out No lo nger eligible based on patient's age to complete this topic Insurance MEDICARE [place]ICA[place]
--- OUTSIDE RECORDS SUMMARY | 2025-03-20 15:08 | XMS_ITS | Encounter Summary ---
Author Organization [facility] Address [address] [place] [address] Phone Care Team Providers Care Guide Setter Name Role Phone Lazaro Lopez MD Primary Care Provider [phone] Reason for Visit * Reason Comments Medication Refill Encounter Details Date Type Department Care Team (Late st Contact Info) Description 09/18/2021 Refill [facility] [address] [place], [place] [phone] Lazaro Lopez MD [address] [place] [address] Medication Refill Social History Tobacco [...] Type Provider Dept 12/26/20 Office Visit Lazaro Loepz MD [facility] Showing recent visits within past 365 days and meeting all other requirements Future Appointments No visits were found meeting these conditions. Showing future appointments within next 90 days and meeting all other requirements Passed - No active on record R PLANT OPERATORS SUPERVISOR documented in this encounter Plan of Treatment Not on file documented as of this encounter Visit Diagnoses Diagnosis Gastroesophageal reflux disease with esophagitis documented in this encounter Additional Health Concerns Assessment Noted Time PHQ-9 Depression Total Score: 24 019 1:00 PM CDT documented as of this encounter Care Teams Guide Setter Relationship Specialty Start Date End Date Lazaro Lopez MD PCP - General Family Medicine 06/06/19 01/09/24 documented as of this encounter
--- OUTSIDE RECORDS SUMMARY | 2025-03-20 15:08 | XMS_ITS | Encounter Summary ---
Author Organization [facility] Address [address] [place] [address] Phone Care Team Providers Care Side Seam Tender Name Role Phone Lazaro Lopez MD Primary Care Provider [phone] Reason for Visit * Reason Comments Medication Refill Encounter Details Date Type Department Care Team (Late st Contact Info) Description 2021 Refill [facility] Family [facility] [address] [place] [address] Lazaro Lopez MD [address] [place] [address] Medication Refill Social History Tobacco Use Types [...] omeprazole (PriLOSEC) 40 MG CAPSULE DELAYED RELEASE [[id number]] 1303 Status: Active Mode: Ordering in Standing Orders mode Communicated by: Prisca Lackey RN Ordering user: Prisca Lackey RN 06/18/21 1250 Ordering provider: Lazaro Lopez MD Authorized by: Lazaro Lopez MD Frequency: BID 06/18/21 - Until Discontinued Released by: Prisca Lackey RN 06/18/21 1250 Diagnoses Gastroesophageal reflux disease with esophagitis [K21.00] Associated Diagnoses Gastroesophageal reflux disease with esophagitis Pharmacy [address] documented in this encounter Plan of Treatment Not on file documented as of this encounter Visit Diagnoses Diagnosis Gastroesophageal reflux disease with esophagitis documented in this encounter Additional Health Concerns Assessment Noted Time PHQ-9 Depression Total Score: 24 019 1:00 PM CDT documented as of this encounter Care Teams Side Seam Tender Relationship Specialty Start Date End Date Lazaro Lopez MD PCP - General Family Medicine 06/06/19 01/09/24 documented as of this encounter
--- OUTSIDE RECORDS SUMMARY | 2025-03-20 15:08 | XMS_ITS | Encounter Summary ---
Author Organization [facility] Address [address] [place] [address] Phone Care Team Providers Care Real Estate Lawyer Name Role Phone Lazaro Lopez MD Primary Care Provider [phone] Reason for Visit * Reason Comments Medication Refill Encounter Details Date Type Department Care Team ([facility] st Contact Info) Description 03/09/2021 Refill [facility] [address] [place], [place] [id number] Lazaro Lopez MD [address] [place], [place] [id number] Medication Refill Social History Tobacco Use Types [...] documented as of this encounter Care Teams Real Estate Lawyer Relationship Specialty Start Date End Date Lazaro Lopez MD PCP - General Family Medicine 06/06/19 01/09/24 documented as of this encounter
--- OUTSIDE RECORDS SUMMARY | 2025-03-20 15:08 | XMS_ITS | Encounter Summary ---
Author Organization [facility] Address [address] [place] [address] Phone Care Team Providers Care Seasonal Recruiter Name Role Phone Lazaro Lopez MD Primary Care Provider [phone] Reason for Visit * Reason Comments Medication Refill Encounter Details Date Type Department Care Team (Late st Contact Info) Description 05/07/2022 Refill [facility] [address] [place] [address] Lazaro Lopez MD [address] [place] [address] Medication Refill Social History Tobacco Use Types [...] documented as of this encounter Care Teams Seasonal Recruiter Relationship Specialty Start Date End Date Lazaro Lopez MD PCP - General Family Medicine 06/06/19 01/09/24 documented as of this encounter
--- OUTSIDE RECORDS SUMMARY | 2025-03-20 15:08 | XMS_ITS | Encounter Summary ---
Author Organization [facility] Address [address] [place] [address] Phone Care Team Providers Care Sorter Packer Name Role Phone Lazaro Lopez MD Primary Care Provider [phone] Reason for Visit * Reason Comments Medication Refill Encounter Details Date Type Department Care Team ([facility] st Contact Info) Description 09/22/2020 Refill [facility] [address] [place], [place] [id number] Lazaro Lopez MD [address] [place], [place] [id number] Medication Refill Social History Tobacco Use Types [...] COVID-19? No / Unsure 09/05/2020 2:50 PM CLINICAL PHARMACY COORDINATOR documented as of this encounter Miscellaneous Notes * Telephone Encounter - Chandler Choukrish Santana RN - 09/22/2020 10:23 AM CST Medication failed the protocol, provider to review and approve the medication order if appropriate. Requested Prescriptions Pending Prescriptions Disp Refills Ventolin HFA 108 (90 Base) MCG/ACT Aerosol Solution [Pharmacy Med Name: VENTOLIN HFA 90 MCG [id number] (90 BAS Aerosol] 36 g 2 Sig: [...] month ago Meralgia paresthetica, right lower limb [facility] Lazaro Ledbetter MD 2 months ago Plantar fasciitis of left foot [facility] Lazaro Ledbetter MD 3 months ago Gastroesophageal reflux disease with esophagitis [facility] Lazaro Wheat MD 9 months ago Essential hypertension [facility] Lazaro Ledbetter MD 10 months ago Meralgia [facility]aresthetica of right side [facility] RIM BUSTER Upcoming Appointments Future Appointments In 2 months Lazaro Lopez MD [facility] Piotr [facility] SENIOR QUALITY MANAGER - Recent and Past Visits Recent Visits Date Type Provider Dept 08/20/20 Office Visit Lazaro Lopez MD [facility] 07/18/20 Office Visit Lazaro Lopez MD [facility] 06/12/20 Office Visit Lazaro Lopez MD [facility] 12/10/19 Office Visit Lazaro Lopez MD [facility] 10/29/19 Office Visit Naomi Aleman APN, RIM BUSTER [facility] 06/27/19 Office Visit Lazaro Lopez [...] Readings from Last 1 Encounters: 08/20/20 122/64 ICAL PHARMACY COORDINATOR documented in this encounter Plan of Treatment Not on file documented as of this encounter Visit Diagnoses Not on filedocumented in this encounter Additional Health Concerns Assessment Noted Time PHQ-9 Depression Total Score: 24 019 1:00 PM CDT documented as of this encounter Care Teams Sorter Packer Relationship Specialty Start Date End Date Lazaro Lopez MD PCP - General Family Medicine 06/06/19 01/09/24 documented as of this encounter
--- OUTSIDE RECORDS SUMMARY | 2025-03-20 15:08 | XMS_ITS | Encounter Summary ---
Author Organization [facility] Address [address] [place] [address] Phone Care Team Providers Care Medical Nurse Name Role Phone Lazaro Lopez MD Primary Care Provider [phone] Reason for Visit * Reason Comments Medication Refill Encounter Details Date Type Department Care Team (Late st Contact Info) Description 02/13/2022 Refill [facility] - Family Medicine [facility] [address] [place] [address] Lazaro Lopez MD [address] [place] [address] Medication Refill Social History Tobacco Use Types [...] documented as of this encounter Care Teams Medical Nurse Relationship Specialty Start Date End Date Lazaro Lopez MD PCP - General Family Medicine 06/06/19 01/09/24 documented as of this encounter
--- OUTSIDE RECORDS SUMMARY | 2025-03-20 15:08 | XMS_ITS | Encounter Summary ---
Author Organization [facility] Address [address] [place] [address] Phone Care Team Providers Care Farm Mechanic Apprentice Name Role Phone Lazaro Lopez MD Primary Care Provider [phone] Reason for Visit * Reason Comments Medication Refill Encounter Details Date Type Department Care Team (Late st Contact Info) Description 12/09/2020 Refill [facility] [address] [place], [place] [id number] Lazaro oLpez MD [address] [place] [address] Medication Refill Social History Tobacco [...] months ago Meralgia paresthetica, right lower limb [facility] Lazaro Ledbetter MD 4 months ago Plantar fasciitis of left foot [facility] Lazaro Ledbetter MD 6 months ago Gastroesophageal reflux disease with esophagitis [facility] Lazaro Ledbetter MD 1 year ago Essential [facility] 1 year ago Meralgia paresthetica of right side [facility] Naomi Aleman APN, ROD STRAIGHTENER Upcoming Appointments Future Appointments In 1 week Lazaro Lopez MD [facility] week Obed Saenz MD [facility] Neurology [facility] IT INFRASTRUCTURE ARCHITECT - Recent and Past Visits Recent Visits Date Type Provider Dept 08/20/20 Office Visit Lazaro Lopez MD [facility] 07/18/20 Office Visit Lazaro Lopez MD [facility] 06/12/20 Office Visit Lazaro Lopez MD [facility] 12/10/19 Office Visit Lazaro Lopez MD [facility] 10/29/19 Office Visit Naomi Aleman APN, ROD STRAIGHTENER [facility] Show[facility] recent visits within past 460 days [...] months ago Meralgia paresthetica, right lower limb [facility] Lazaro Ledbetter MD 4 months ago Plantar fasciitis of left foot [facility] Lazaro Ledbetter MD 6 months ago Gastroesophageal reflux disease with esophagitis [facility] 1 year ago Essential hypertension [facility] 1 year ago Meralgia paresthetica of right side [facility] Graham APN, ROD STRAIGHTENER Upcoming Appointments Future Appointments In 1 week Lazaro Lopez MD [facility] Family Medicine P[facility] Obed Saenz MD [facility] Neurology [facility] IT INFRASTRUCTURE ARCHITECT - Recent and Past Visits Recent Visits Date Type Provider Dept 08/20/20 Office Visit Lazaro Lopez MD [facility] 07/18/20 Office Visit Lazaro Lopez MD [facility] 06/12/20 Office Visit Lazaro Lopez MD [facility] 12/10/19 Office Visit Lazaro Lopez MD [facility] 10/29/19 Office Visit Naomi Aleman APN, ROD STRAIGHTENER [facility] Showing recent visits within past 460 [...] paresthetica, right lower limb [facility] 4 months ago Plantar fasciitis of left foot [facility] Lazaro Ledbetter MD 6 months ago Gastroesophageal reflux disease with esophagitis [facility] 1 year ago Essential hypertension [facility] MD 1 year ago Meralgia paresthetica of right side [facility] Naomi Aleman APN, ROD STRAIGHTENER Upcoming Appointments Future Appointments In 1 week Lazaro Lopez MD [facility], [facility] In 1 week Obed Saenz MD [facility] IT INFRASTRUCTURE ARCHITECT - Recent and Past Visits Recent Visits Date Type Provider Dept 08/20/20 Office Visit Lazaro Lopez MD [facility] 07/18/20 Office Visit Lazaro Lopez MD [facility] 06/12/20 Office Visit Lazaro Lopez MD [facility] 12/10/19 Office Visit Lazaro Lopez MD [facility] 10/29/19 Office Visit Naomi Aleman APN, ROD STRAIGHTENER [facility] Showing recent visits within past 460 [...] paresthetica, right lower limb [facility] 4 months ago Plantar fasciitis of left foot [facility] 6 months ago Gastroesophageal reflux disease with esophagitis [facility] 1 year ago Essential hypertension [facility] 1 year ago Meralgia paresthetica of right side [facility] Naomi Aleman APN, ROD STRAIGHTENER Upcoming Appointments Future Appointments In 1 week Lazaro Lopez MD [facility], [facility] In 1 week Obed Saenz MD [facility] Neurology [facility], [facility] IT INFRASTRUCTURE ARCHITECT - Recent and Past Visits Recent Visits Date Type Provider Dept 08/20/20 Office Visit Lazaro Lopez MD [facility] 07/18/20 Office Visit Lazaro Lopez MD [facility] 06/12/20 Office Visit Lazaro Lopez MD [facility] 12/10/19 Office Visit Lazaro Lopez MD [facility] 10/29/19 Office Visit Naomi Aleman APN, [place] [facility] Showing recent visits within past 460 days with a meds authorizing provider and meeting all other requirements Future Appointments Date Type Provider Dept 12/19/20 Appointment Lazaro Lopez MD [facility] Show[facility] future appointments within next 90 days with a meds authorizing provider and meeting all other requirements S PERFORMANCE ANALYST documented in this encounter Plan of Treatment Not on file documented as of this encounter Visit Diagnoses Not on filedocumented in this encounter Additional Health Concerns Assessment Noted Time PHQ-9 Depression Total Score: 24 019 1:00 PM CDT documented as of this encounter Care Teams Farm Mechanic Apprentice Relationship Specialty Start Date End Date Lazaro Lopez MD PCP - General Family Medicine 06/06/19 01/09/24 documented as of this encounter
--- OUTSIDE RECORDS SUMMARY | 2025-03-20 15:08 | XMS_ITS | Encounter Summary ---
Author Organization [facility] Address [address] [place] [address] Phone Care Team Providers Care Balance And Hairspring Assembler Name Role Phone Lazaro Lopez MD Primary Care Provider [phone] Reason for Visit * Reason Comments Medication Refill Encounter Details Date Type Department Care Team (Late st Contact Info) Description 03/10/2021 Refill [facility] - [facility] [address] [place] [address] Lazaro Lopez MD [address] [place] [address] Medication Refill Social History Tobacco Use Types [...] documented as of this encounter Care Teams Balance And Hairspring Assembler Relationship Specialty Start Date End Date Lazaro Lopez MD PCP - General Family Medicine 06/06/19 01/09/24 documented as of this encounter
--- OUTSIDE RECORDS SUMMARY | 2025-03-20 15:08 | XMS_ITS | Encounter Summary ---
Author Organization [facility] Address [address] [place] [address] Phone Care Team Providers Care Central Supply Aide Name Role Phone Lazaro Lopez MD Primary Care Provider [phone] Reason for Visit * Reason Comments Medication Refill Encounter Details Date Type Department Care Team ([facility] st Contact Info) Description 03/11/2021 Refill [facility] [address] [place], [place] [phone] Lazaro Lopez MD [address] [place], [place] [address] Medication Refill Social History Tobacco Use Types [...] documented as of this encounter Care Teams Central Supply Aide Relationship Specialty Start Date End Date Lazaro Lopez MD PCP - General Family Medicine 06/06/19 01/09/24 documented as of this encounter
--- OUTSIDE RECORDS SUMMARY | 2025-03-20 15:08 | XMS_ITS | Encounter Summary ---
Author Organization [facility] Address [address] [place] [address] Phone Care Team Providers Care Charging Manipulator Name Role Phone Lazaro Lopez MD Primary Care Provider [phone] Reason for Visit * Reason Comments Medication Refill Encounter Details Date Type Department Care Team (Late st Contact Info) Description 04/11/2022 Refill [facility] - Family Medicine [facility] [address] [place] [address] Lazaro Lopez MD [address] [place] [address] Medication Refill Social History Tobacco Use Types [...] documented as of this encounter Care Teams Charging Manipulator Relationship Specialty Start Date End Date Lazaro Lopez MD PCP - General Family Medicine 06/06/19 01/09/24 documented as of this encounter
--- OUTSIDE RECORDS SUMMARY | 2025-03-20 15:08 | XMS_ITS | Encounter Summary ---
Author Organization [facility] Address [address] [place] [address] Phone Care Team Providers Care Food Beverage Server Name Role Phone Lazaro Lopez MD Primary Care Provider [phone] Reason for Visit * Reason Comments Medication Refill Encounter Details Date Type Department Care Team (Late st Contact Info) Description 05/04/2021 Refill [facility] [address] [place], [place] [id number] Lazaro Lopez MD [address] [place] [address] Medication Refill Social History Tobacco [...] [Pharmacy Med Name: VENTOLIN HFA 90 MCG [id number] (90 BAS Aerosol] 36 g 2 Sig: [...] documented as of this encounter Care Teams Food Beverage Server Relationship Specialty Start Date End Date Lazaro Lopez MD PCP - General Family Medicine 06/06/19 01/09/24 documented as of this encounter
--- OUTSIDE RECORDS SUMMARY | 2025-03-20 15:08 | XMS_ITS | Encounter Summary ---
Author Organization [facility] Address [address] [place] [address] Phone Care Team Providers Care Cashier Name Role Phone Lazaro Lopez MD Primary Care Provider [phone] Reason for Visit * Reason Comments Medication Refill Encounter Details Date Type Department Care Team (Late st Contact Info) Description 09/18/2021 Refill [facility] - Family [facility] [address] [place] [address] Lazaro Lopez MD [address] [place] [address] Medication Refill Social History Tobacco Use Types [...] Requested Prescriptions Pending Prescriptions Disp Refills nystatin 135682 UNIT/GM Powder [Pharmacy Med Name: NYSTOP [id number] UNIT/GM POWD [id number] Powder] 60 g 2 Sig: APPLY 3 TIMES DAILY. APPLY TO AFFECTED AREA DIRECTED. [facility] Off-Protocol Failed - 09/18/2021 3:56 PM Failed - Medication not assigned to a protocol, review manually. Passed - Valid encounter within last 12 months Past Office Visits Recent Outpatient Visits 8 months ago [facility] 1 year ago Meralgia paresthetica, right lower limb [facility] Lazaro Wheat MD 1 year ago Plantar fasciitis of left foot [facility] Lazaro Wheat MD 1 year ago Gastroesophageal reflux disease with esophagitis [facility] Lazaro Wheat MD 1 year ago Essential hypertension [facility] Lazaro Wheat MD Upcoming Appointments INDUSTRIAL CHEMIST - Recent and Past Visits Recent Visits [...] 90 days and meeting all other requirements ROLLER OPERATIONS AND HR MANAGER documented in this encounter Plan of Treatment Not on file documented as of this encounter Visit Diagnoses Not on filedocumented in this encounter Additional Health Concerns Assessment Noted Time PHQ-9 Depression Total Score: 24 019 1:00 PM CDT documented as of this encounter Care Teams Cashier Relationship Specialty Start Date End Date Lazaro Lopez MD PCP - General Family Medicine 06/06/19 01/09/24 documented as of this encounter
--- OUTSIDE RECORDS SUMMARY | 2025-03-20 15:08 | XMS_ITS | Encounter Summary ---
Author Organization [facility] Address [address] [place] [address] Phone Care Team Providers Care Conference Planner Name Role Phone Lazaro Lopez MD Primary Care Provider [phone] Reason for Visit * Reason Onset Date Comments Medication Refill 11/03/2021 Encounter Details Date Type Department Care Team (Late st Contact Info) Description 11/03/2021 Refill [facility] - [facility] [address]2 [place] [address] Lazaro Lopez MD [address] [place] [address] Medication Refill Social History Tobacco Use Types [...] 09/18/21 Omeprazole refilled for 90 days 09/18/21 TWISTER WINDER * Telephone Encounter - Adry Dennis - 11/03/2021 1:59 PM CST Received a faxed Rx request from pharmacy. Reordered refill medication(s) requested and pended for nurse and physician/MELISA review. Refill encounter routed to nurse [employer] for processing. TWISTER WINDER documented in this encounter Plan of Treatment Not on file documented as of this encounter Visit Diagnoses Diagnosis Gastroesophageal reflux disease with esophagitis documented in this encounter Additional Health Concerns Assessment Noted Time PHQ-9 Depression Total Score: 24 06/13/ 019 1:00 PM CDT documented as of this encounter Care Teams Conference Planner Relationship Specialty Start Date End Date Lazaro Lopez MD PCP - General Family Medicine 06/06/19 01/09/24 documented as of this encounter
--- OUTSIDE RECORDS SUMMARY | 2025-03-20 15:08 | XMS_ITS | Referral Summary ---
Author Organization [facility] lto Address [address] [address] Care Team Providers Care Tent Assembler Name Role Phone Huber Contreras MD Primary Care Provider [phone] Kylee Martines NP Unavailable [phone] Luma Gibson Unavailable [phone] Allergies Active Allergy Reactions Criticality Noted Date [...] (01/04/2023): Added automatically from request for surgery [id number] Immunizations Immunization Administration Dates Next Due Tdap [...] on file Legal Sex Female 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 Gender Identity Not on file Sexual Orientation [...] P M CDT Height 157.5 cm (5' 2) 07/29/2024 8:09 PM CDT Body Mass Index 38.06 07/29/2024 8:09 PM CDT Plan of Treatment Not on file Insurance [facility] Member Subscriber Plan / Payer (Ef fective 2021-Present) Name:Kimberly Bolton Johana Relation to Subscriber:Self Name:Kimberly Bolton Payer ID:[id number] (NAIC) Type:MEDICARE RISK OTHER Address: [address] [place] [address] [employer] [facility] Member Subscriber Plan / Payer (Ef fective 2021-Present) Name:HoangKimberly Johana Relation to Subscriber:Self Name:HoangKimberly Johana Payer ID:[id number] (NAIC) Type:MEDICARE RISK OTHER Address: [address] [place] [address] [place] [address] Advance Directives For more information, please contact: [phone] * Full Code (Latest Code Status on File) Date Activated Date Inactivated Comments 04/26/2023 8:42 PM 04/27/2023 2:23 PM Care Teams Tent Assembler Relationship Specialty Start Date End Date Huber Contreras MD [address] [place] [address] PCP - General Internal Medicine 12/01/21 Kylee Martines NP [address] [place] [address] Nurse Practitioner Internal Medicine 12/01/21 Luma Gibson PA [address] [place] [address] Orthopedic Surgery 01/07/23
--- OUTSIDE RECORDS SUMMARY | 2025-03-20 15:08 | XMS_ITS | Encounter Summary ---
Author Organization [facility] Address [address] [place] [address] Phone Care Team Providers Care Director Wholesale Name Role Phone Lazaro Lopez MD Primary Care Provider [phone] Reason for Visit * Reason Comments Medication Refill Encounter Details Date Type Department Care Team (Late st Contact Info) Description 04/24/2021 Refill [facility] [address] [place], [place] [id number] Lazaro Lopez MD [address] [place] [address] Medication Refill Social History Tobacco [...] documented as of this encounter Care Teams Director Wholesale Relationship Specialty Start Date End Date Lazaro Lopez MD PCP - General Family Medicine 06/06/19 01/09/24 documented as of this encounter
--- OUTSIDE RECORDS SUMMARY | 2025-03-20 15:08 | XMS_ITS | Encounter Summary ---
Author Organization [facility] Address [address] [place] [address] Phone Care Team Providers Care Ear Specialist Name Role Phone Lazaro Lopez MD Primary Care Provider [phone] Reason for Visit * Reason Comments Medication Refill Encounter Details Date Type Department Care Team (Late st Contact Info) Description 12/05/2020 Refill [facility] [address] [place] [address] Lazaro Lopez MD [address] [place], [place] [address] Medication Refill Social History Tobacco Use Types [...] documented as of this encounter Care Teams Ear Specialist Relationship Specialty Start Date End Date Lazaro Lopez MD PCP - General Family Medicine 06/06/19 01/09/24 documented as of this encounter
--- OUTSIDE RECORDS SUMMARY | 2025-03-20 15:08 | XMS_ITS | Clinical Summary ---
Author Organization [facility] [address] [facility] Address 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 Gender Identity Not on file Sexual Orientation [...] (Season Ended) 2025 08/18/2020, 09/10/2019, 08/24/2015 Insurance [employer] [facility] [employer] [facility] [employer] Advance Directives For more information, please contact: [phone] * Full Code (Latest Code Status on File) Date Activated Date Inactivated Comments 04/26/2023 8:42 PM 04/27/2023 2:23 PM Care Teams Electric Shovel Operator Relationship Specialty Start Date End Date Huber Contreras MD [address] [place] [address] PCP - General Internal Medicine 12/01/21 Kylee Martines NP [address] [place] [address] Nurse Practitioner Internal Medicine 12/01/21 Luma Gibson PA [address] [place] [address] Orthopedic Surgery 01/07/23
--- OUTSIDE RECORDS SUMMARY | 2025-03-20 15:08 | XMS_ITS | Encounter Summary ---
Author Organization [facility] Address [address] [place] [address] Phone Care Team Providers Care Ham Smoker Name Role Phone Lazaro Lopez MD Primary Care Provider [phone] Reason for Visit * Reason Comments Medication Refill Encounter Details Date Type Department Care Team ([facility] st Contact Info) Description 10/14/2020 Refill [facility] [address] [place], [place] [id number] Lazaro Lopez MD [address] [place], [place] [id number] Medication Refill Social History Tobacco Use Types [...] Coronavirus / COVID-19? Yes 10/08/2020 4:00 PM NURSE SUBSTANCE ABUSE documented as of this encounter Miscellaneous Notes * Telephone Encounter - Sehr, Marilia L, RN - 10/14/2020 1:52 PM CST The original prescription was discontinued on 09/19/2020 by Lazaro Lopez MD E SUBSTANCE ABUSE documented in this encounter Plan of Treatment Not on file documented as of this encounter Visit Diagnoses Not on filedocumented in this encounter Additional Health Concerns Assessment Noted Time PHQ-9 Depression Total Score: 24 019 1:00 PM CDT documented as of this encounter Care Teams Ham Smoker Relationship Specialty Start Date End Date Lazaro Lopez MD PCP - General Family Medicine 06/06/19 01/09/24 documented as of this encounter
[2025-03-20 19:50] LABS: Add Urine Microscopic? YES; Appearance Urine Clear (Clear); Bacteria Urine 1+ /hpf; Bilirubin Urine Negative (Negative); Blood Urine Negative (Negative); Color Urine Yellow (Yellow); Glucose Urine UA Negative (Negative); Ketones Urine Negative (Negative); Leukocyte Esterase Ur 3+ LEU/UL (Negative); Nitrate Urine Positive (Negative); Non Pathogenic Casts 0-2; Protein Urine Negative (Negative); RBC Urine 0-2 /hpf (0-2); Specific Grav Ur 1.012 (1.001-1.035); Squamous Epithelial Cell Urine Few /hpf (Few); WBC Urine 21-50 /hpf (0-3); pH Urine 6.5 (5.0-9.0)
== END 2025-03-20 14:59 | disposition home or self-care (01) ==
PROVIDERS: PCP Nurse Practitioner Adult Health; Visit Provider Nurse Practitioner Adult Health
DX: R39.9 Unspecified symptoms and signs involving the genitourinary system (principal)
CPT/HCPCS: 81001; 87086; 87181

== ENCOUNTER 2025-06-12 12:24 | Outpatient (CLI) | payer OTHER, MEDICAID, SELFPAY ==
--- OUTSIDE RECORDS SUMMARY | 2025-06-12 12:27 | XMS_ITS | Encounter Summary ---
Author Organization [facility] Address [address] [place] [place] [address] Phone Care Team Providers Care Extrusion Former Name Role Phone Lazaro Lopez MD Primary Care Provider [phone] Reason for Visit * Reason Comments Medication Refill Encounter Details Date Type Department Care Team (Late st Contact Info) Description 12/05/2020 Refill [facility] [address] [place] [address] Lazaro Lopez MD [address] [place], [place] [id number] Medication Refill Social History Tobacco Use Types [...] documented as of this encounter Care Teams Extrusion Former Relationship Specialty Start Date End Date Lazaro Lopez MD PCP - General Family Medicine 06/06/19 01/09/24 documented as of this encounter
--- OUTSIDE RECORDS SUMMARY | 2025-06-12 12:27 | XMS_ITS | Encounter Summary ---
Author Organization [facility] Address [address] [place] [address] Phone Care Team Providers Care Pusher Runner Name Role Phone Lazaro Lopez MD Primary Care Provider [phone] Reason for Visit * Reason Comments Medication Refill Encounter Details Date Type Department Care Team (Late st Contact Info) Description 12/09/[address] [facility] [address] [place], [place] [id number] Lazaro Lopez MD [address] [place] [address] Medication Refill Social History Tobacco [...] months ago Meralgia paresthetica, right lower limb [facility] Lazaro Ledbetter MD 4 months ago Plantar fasciitis of left foot [facility] Lazaro Ledbetter MD 6 months ago Gastroesophageal reflux disease with esophagitis [facility] Lazaro Ledbetter MD 1 year [address] [facility] 1 year ago Meralgia paresthetica of right side [facility] Naomi Aleman APN, SCREEDMAN/LABORER Upcoming Appointments Future Appointments In 1 week Lazaro Lopez MD [facility] week Obed Saenz MD [facility] Neurology [facility] ROLL FORMING MACHINE SET UP OPERATOR - Recent and Past Visits Recent Visits Date Type Provider Dept 08/20/20 Office Visit Lazaro Lopez MD [facility] 07/18/20 Office Visit Lazaro Lopez MD [facility] 06/12/20 Office Visit Lazaro Lopez MD [facility] 12/10/19 Office Visit Lazaro Lopez MD [facility] 10/29/19 Office Visit Naomi Aleman APN, SCREEDMAN/LABORER [facility] Show[facility] recent visits within past 460 [...] months ago Meralgia paresthetica, right lower limb [facility] Lazaro Ledbetter MD 4 months ago Plantar fasciitis of left foot [facility] Lazaro Ledbetter MD 6 months ago Gastroesophageal reflux disease with esophagitis [facility] 1 year [address] [facility] 1 year ago Meralgia paresthetica of right side [facility] APN, SCREEDMAN/LABORER Upcoming Appointments Future Appointments In 1 week Lazaro Lopez MD [facility] Family [facility] week Obed Saenz MD [facility] Neurology [facility] ROLL FORMING MACHINE SET UP OPERATOR - Recent and Past Visits Recent Visits Date Type Provider Dept 08/20/20 Office Visit Lazaro Lopez MD [facility] 07/18/20 Office Visit Lazaro Lopez MD [facility] 06/12/20 Office Visit Lazaro Lopez MD [facility] 12/10/19 Office Visit Lazaro Lopez MD [facility] 10/29/19 Office Visit Naomi Aleman APN, SCREEDMAN/LABORER [facility] Showing recent visits within past 460 days [...] months ago Meralgia paresthetica, right lower limb [facility] 4 months ago Plantar fasciitis of left foot [facility] Lazaro Ledbetter MD 6 months ago Gastroesophageal reflux disease with esophagitis [facility] 1 year [address] [facility] 1 year ago Meralgia paresthetica of right side [facility] Naomi Aleman APN, SCREEDMAN/LABORER Upcoming Appointments Future Appointments In 1 week Lazaro Lopez MD [facility], [facility] In 1 week Obed Saenz MD [facility] ROLL FORMING MACHINE SET UP OPERATOR - Recent and Past Visits Recent Visits Date Type Provider Dept 08/20/20 Office Visit Lazaro Lopez MD [facility] 07/18/20 Office Visit Lazaro Lopez MD [facility] 06/12/20 Office Visit Lazaro Lopez MD [facility] 12/10/19 Office Visit Lazaro Lopez MD [facility] 10/29/19 Office Visit Naomi Aleman APN, SCREEDMAN/LABORER [facility] Showing recent visits within past 460 days [...] months ago Meralgia paresthetica, right lower limb [facility] 4 months ago Plantar fasciitis of left foot [facility] 6 months ago Gastroesophageal reflux disease with esophagitis [facility] 1 year [address] [facility] 1 year ago Meralgia paresthetica of right side [facility] Naomi Aleman APN, SCREEDMAN/LABORER Upcoming Appointments Future Appointments In 1 week Lazaro Lopez MD [facility], [facility] In 1 week Obed Saenz MD [facility] Neurology [facility], [facility] ROLL FORMING MACHINE SET UP OPERATOR - Recent and Past Visits Recent Visits Date Type Provider Dept 08/20/20 Office Visit Lazaro Lopez MD [facility] 07/18/20 Office Visit Lazaro Lopez MD [facility] 06/12/20 Office Visit Lazaro Lopez MD [facility] 12/10/19 Office Visit Lazaro Lopez MD [facility] 10/29/19 Office Visit Naomi Aleman APN, [facility] Showing recent visits within past 460 days with a meds authorizing provider and meeting all other requirements Future Appointments Date Type Provider Dept 12/19/20 Appointment [facility] MD [facility] Show[facility] future appointments within next 90 days with a meds authorizing provider and meeting all other requirements LAYER HELPER documented in this encounter Plan of Treatment Not on file documented as of this encounter Visit Diagnoses Not on filedocumented in this encounter Additional Health Concerns Assessment Noted Time PHQ-9 Depression Total Score: 24 019 1:00 PM CDT documented as of this encounter Care Teams Pusher Runner Relationship Specialty Start Date End Date Lazaro Lopez MD PCP - General Family Medicine 06/06/19 01/09/24 documented as of this encounter
--- OUTSIDE RECORDS SUMMARY | 2025-06-12 12:27 | XMS_ITS | Patient Health Record ---
Author Organization [facility] Security Scorecard Address [facility] [facility] [address] [facility] [address] [place] [address] Care Team Providers Care Plant And Maintenance Technician Name Role Phone GeronimoTripp Unavailable [phone] Reason For Referral No Information Plan Of Treatment No Information
--- OUTSIDE RECORDS SUMMARY | 2025-06-12 12:27 | XMS_ITS | Encounter Summary ---
Author Organization [facility] Address [address] [place] [address] Phone Care Team Providers Care Director Of Rehabilitative Services Name Role Phone Lazaro Lopez MD Primary Care Provider [phone] Reason for Visit * Reason Comments Medication Refill Encounter Details Date Type Department Care Team ([facility] st Contact Info) Description 03/11/2021 Refill [facility] [address] [place], [place] [id number] Lazaro Lopez MD [address] [place], [place] [id number] Medication Refill Social History Tobacco Use Types [...] as of this encounter Care Teams Director Of Rehabilitative Services Relationship Specialty Start Date End Date Lazaro Lopez MD PCP - General Family Medicine 06/06/19 01/09/24 documented as of this encounter
--- OUTSIDE RECORDS SUMMARY | 2025-06-12 12:27 | XMS_ITS | Encounter Summary ---
Author Organization [facility] Address [address] [place] [address] Phone Care Team Providers Care Loan Coordinator Name Role Phone Lazaro Lopez MD Primary Care Provider [phone] Reason for Visit * Reason Comments Medication Refill Encounter Details Date Type Department Care Team ([facility] st Contact Info) Description 03/09/2021 Refill [facility] [address] [place], [place] [id number] Lazaro Lopez MD [address] [place], [place] [id number] Medication Refill Social History Tobacco Use Types [...] documented as of this encounter Care Teams Loan Coordinator Relationship Specialty Start Date End Date Lazaro Lopez MD PCP - General Family Medicine 06/06/19 01/09/24 documented as of this encounter
--- OUTSIDE RECORDS SUMMARY | 2025-06-12 12:27 | XMS_ITS | Encounter Summary ---
Author Organization [facility] Address [address] [place] [address] Phone Care Team Providers Care Cotton Cleaner Name Role Phone Lazaro Lopez MD Primary Care Provider Reason for Visit * Reason Comments Medication Refill Encounter Details Date Type Department Care Team (Late st Contact Info) Description 04/24/2021 Refill [facility] [address] [place], [place] [id number] Lazaro Lopez MD [address] [place] [address] Medication Refill Social History Tobacco [...] documented as of this encounter Care Teams Cotton Cleaner Relationship Specialty Start Date End Date Lazaro Lopez MD PCP - General Family Medicine 06/06/19 01/09/24 documented as of this encounter
--- OUTSIDE RECORDS SUMMARY | 2025-06-12 12:27 | XMS_ITS | Encounter Summary ---
Author Organization [facility] Address [address] [place] [address] Phone Care Team Providers Care Clay Miller Name Role Phone Lazaro Lopez MD Primary Care Provider [phone] Reason for Visit * Reason Comments Medication Refill Encounter Details Date Type Department Care Team (Late st Contact Info) Description 07/20/2021 Refill [facility] [address] [place], [place] [id number] Lazaro Lopez MD [address] [place] [address] Medication Refill Social History Tobacco [...] [Pharmacy Med Name: VENTOLIN HFA 90 MCG [id number] (90 BAS Aerosol] 36 g 2 Sig: [...] documented as of this encounter Care Teams Clay Miller Relationship Specialty Start Date End Date Lazaro Lopez MD PCP - General Family Medicine 06/06/19 01/09/24 documented as of this encounter
--- OUTSIDE RECORDS SUMMARY | 2025-06-12 12:27 | XMS_ITS | Encounter Summary ---
Author Organization [facility] Address [address] [place] [address] Phone Care Team Providers Care Coordinator Skill Training Program Name Role Phone Lazaro Lopez MD Primary Care Provider [phone] Reason for Visit * Reason Comments Medication Refill Encounter Details Date Type Department Care Team ([facility] st Contact Info) Description 01/12/2021 Refill [facility] [address] [place], [place] [phone] Lazaro Lopez MD [address] [place], [place] [id number] Medication Refill Social History Tobacco Use Types [...] COVID-19? No / Unsure 12/26/2020 2:28 PM ART GALLERY INTERNSHIP documented as of this encounter Miscellaneous Notes * Telephone Encounter - Marilia Chou RN - 01/12/2021 12:31 PM CDT Medication failed the protocol, provider to review and approve the medication order if appropriate. Requested Prescriptions Pending Prescriptions Disp Refills Ventolin HFA 108 (90 Base) MCG/ACT Aerosol Solution [Pharmacy Med Name: VENTOLIN HFA 90 MCG [id number] (90 BAS Aerosol] 36 g 2 Sig: [...] Recent Outpatient Visits 2 weeks ago Hypercholesterolemia [facility] Lazaro Wheat MD 4 months ago Meralgia paresthetica, right lower limb [facility] Lazaro Wheat MD 5 months ago Plantar fasciitis of left foot [facility] Lazaro Wheat MD 7 months ago Gastroesophageal reflux disease with esophagitis [facility] Lazaro Wheat MD 1 year ago Essential hypertension [facility] Lazaro Wheat MD Upcoming Appointments Future Appointments In 5 months Lazaro Lopez MD [facility] Donovan Saldaña [facility] PAPERBOARD BOXES ESTIMATOR - Recent and Past Visits Recent Visits Date Type Provider Dept 12/26/20 Office Visit Lazaro Lopez MD [facility] 08/20/20 Office Visit Lazaro Lopez MD [facility] 07/18/20 Office Visit Lazaro Lopez MD [facility] 06/12/20 Office Visit Lazaro Lopez MD [facility] 12/10/19 Office Visit aLzaro Lopez MD [facility] 10/29/19 Office Visit Naomi Aleman, SLIVER FORMER, METAL PRODUCTS VIEWER [facility] Showing recent visits within past [...] documented as of this encounter Care Teams Coordinator Skill Training Program Relationship Specialty Start Date End Date Lazaro Lopez MD PCP - General Family Medicine 06/06/19 01/09/24 documented as of this encounter
--- OUTSIDE RECORDS SUMMARY | 2025-06-12 12:27 | XMS_ITS | Encounter Summary ---
Author Organization [facility] Address [address] [place] [address] Phone Care Team Providers Care Talent Associate Name Role Phone Lazaro Lopez MD Primary Care Provider [phone] Reason for Visit * Reason Comments Medication Refill Encounter Details Date Type Department Care Team ([facility] st Contact Info) Description 09/22/2020 Refill [facility] [address] [place], [place] [id number] Lazaro Lopez MD [address] [place], [place] [address] Medication Refill Social History Tobacco Use Types [...] COVID-19? No / Unsure 09/05/2020 2:50 PM ROLLING UP MACHINE OPERATOR documented as of this encounter Miscellaneous Notes * Telephone Encounter - Chandler Choukrish Santana RN - 09/22/2020 10:23 AM CST Medication failed the protocol, provider to review and approve the medication order if appropriate. Requested Prescriptions Pending Prescriptions Disp Refills Ventolin HFA 108 (90 Base) MCG/ACT Aerosol Solution [Pharmacy Med Name: VENTOLIN HFA 90 MCG [id number] (90 BAS Aerosol] 36 g 2 Sig: [...] month ago Meralgia paresthetica, right lower limb [facility] Lazaro Ledbetter MD 2 months ago Plantar fasciitis of left foot [facility] Lazaro Ledbetter MD 3 months ago Gastroesophageal reflux disease with esophagitis [facility] Lazaro Wheat MD 9 months ago Essential hypertension [facility] Lazaro Ledbetter MD 10 months ago Meralgia paresthetica of right side [facility] APN, SHOE STOCK ASSOCIATE Upcoming Appointments Future Appointments In 2 months Lazaro Lopez MD [facility] INTERMEDIATE DESIGNER - Recent and Past Visits Recent Visits Date Type Provider Dept 08/20/20 Office Visit Lazaro Lopez MD [facility] 07/18/20 Office Visit Lazaro Lopez MD [facility] 06/12/20 Office Visit Lazaro Lopez MD [facility] 12/10/19 Office Visit Lazaro Lopez MD [facility] 10/29/19 Office Visit Naomi Aleman APN, SHOE STOCK ASSOCIATE [facility] 06/27/19 Office Visit Lazaro Lopez [...] Readings from Last 1 Encounters: 08/20/20 122/64 ING UP MACHINE OPERATOR documented in this encounter Plan of Treatment Not on file documented as of this encounter Visit Diagnoses Not on filedocumented in this encounter Additional Health Concerns Assessment Noted Time PHQ-9 Depression Total Score: 24 019 1:00 PM CDT documented as of this encounter Care Teams Talent Associate Relationship Specialty Start Date End Date Lazaro Lopez MD PCP - General Family Medicine 06/06/19 01/09/24 documented as of this encounter
--- OUTSIDE RECORDS SUMMARY | 2025-06-12 12:27 | XMS_ITS | Encounter Summary ---
Author Organization [facility] Address [address] [place] [address] Phone Care Team Providers Care Senior Care Manager Name Role Phone Lazaro Lopez MD Primary Care Provider [phone] Reason for Visit * Reason Comments Medication Refill Encounter Details Date Type Department Care Team (Late st Contact Info) Description 09/18/2021 Refill [facility] [address] [place], [place] [phone] Lazaro Lopez MD [address] [place] [address] Medication Refill Social History Tobacco [...] requirements Passed - No active on record HMAN/CRANE OPERATOR documented in this encounter Plan of Treatment Not on file documented as of this encounter Visit Diagnoses Diagnosis Gastroesophageal reflux disease with esophagitis documented in this encounter Additional Health Concerns Assessment Noted Time PHQ-9 Depression Total Score: 24 019 1:00 PM CDT documented as of this encounter Care Teams Senior Care Manager Relationship Specialty Start Date End Date Lazaro Lopez MD PCP - General Family Medicine 06/06/19 01/09/24 documented as of this encounter
--- OUTSIDE RECORDS SUMMARY | 2025-06-12 12:27 | XMS_ITS | Encounter Summary ---
Author Organization [facility] Address [address] [place] [address] Phone Care Team Providers Care Flat Polisher Name Role Phone Lazaro Lopez MD Primary Care Provider [phone] Reason for Visit * Reason Comments Medication Refill Encounter Details Date Type Department Care Team (Late st Contact Info) Description 05/04/2021 Refill [facility] [address] [place], [place] [phone] Lazaro Lopez MD [address] [place] [address] Medication Refill Social History Tobacco [...] [Pharmacy Med Name: VENTOLIN HFA 90 MCG [id number] (90 BAS Aerosol] 36 g 2 Sig: [...] documented as of this encounter Care Teams Flat Polisher Relationship Specialty Start Date End Date Lazaro Lopez MD PCP - General Family Medicine 06/06/19 01/09/24 documented as of this encounter
--- OUTSIDE RECORDS SUMMARY | 2025-06-12 12:27 | XMS_ITS | Encounter Summary ---
Author Organization [facility] Address [address] [place] [address] Phone Care Team Providers Care Oncology Physician Assistant Name Role Phone Lazaro Lopez MD Primary Care Provider [phone] Reason for Visit * Reason Comments Medication Refill Encounter Details Date Type Department Care Team (Late st Contact Info) Description 03/10/2021 Refill [facility] [address] [place] [address] Lazaro Lopez MD [address] [place] [address] Medication Refill Social History Tobacco Use Types [...] documented as of this encounter Care Teams Oncology Physician Assistant Relationship Specialty Start Date End Date Lazaro Lopez MD PCP - General Family Medicine 06/06/19 01/09/24 documented as of this encounter
--- OUTSIDE RECORDS SUMMARY | 2025-06-12 12:27 | XMS_ITS | Encounter Summary ---
Author Organization [facility] Address [address] [place] [address] Phone Care Team Providers Care Yard Attendant Name Role Phone Lazaro Lopez MD Primary Care Provider Reason for Visit * Reason Comments Medication Refill Encounter Details Date Type Department Care Team ([facility] st Contact Info) Description 10/14/2020 Refill [facility] [address] [place], [place] [phone] Lazaro Lopez MD [address] [place], [place] [address] Medication Refill Social History Tobacco Use Types [...] Coronavirus / COVID-19? Yes 10/08/2020 4:00 PM FLOUR INSPECTOR documented as of this encounter Miscellaneous Notes * Telephone Encounter - Sehr, Marilia L, RN - 10/14/2020 1:52 PM CST The original prescription was discontinued on 09/19/2020 by Lazaro Lopez MD R INSPECTOR documented in this encounter Plan of Treatment Not on file documented as of this encounter Visit Diagnoses Not on filedocumented in this encounter Additional Health Concerns Assessment Noted Time PHQ-9 Depression Total Score: 24 019 1:00 PM CDT documented as of this encounter Care Teams Yard Attendant Relationship Specialty Start Date End Date Lazaro Lopez MD PCP - General Family Medicine 06/06/19 01/09/24 documented as of this encounter
--- OUTSIDE RECORDS SUMMARY | 2025-06-12 12:27 | XMS_ITS | Encounter Summary ---
Author Organization [facility] Address [address] [place] [address] Phone Care Team Providers Care Aquarist Name Role Phone Lazaro Lopez MD Primary Care Provider [phone] Reason for Visit * Reason Comments Medication Refill Encounter Details Date Type Department Care Team (Late st Contact Info) Description 2021 Refill [facility] [address] [place] [address] Lazaro Lopez MD [address] [place] [address] Medication Refill Social History Tobacco Use Types [...] omeprazole (PriLOSEC) 40 MG CAPSULE DELAYED RELEASE [[id number]] 1303 Status: Active Mode: Ordering in Standing Orders mode Communicated by: Prisca Lackey RN Ordering user: Prisca Lackey RN 06/18/21 1250 Ordering provider: Lazaro Lopez MD Authorized by: Lazaro Lopez MD Frequency: BID 06/18/21 - Until Discontinued Released by: Prisca Lackey RN 06/18/21 1250 Diagnoses Gastroesophageal reflux disease with esophagitis [K21.00] Associated Diagnoses Gastroesophageal reflux disease with esophagitis Pharmacy [address] documented in this encounter Plan of Treatment Not on file documented as of this encounter Visit Diagnoses Diagnosis Gastroesophageal reflux disease with esophagitis documented in this encounter Additional Health Concerns Assessment Noted Time PHQ-9 Depression Total Score: 24 019 1:00 PM CDT documented as of this encounter Care Teams Aquarist Relationship Specialty Start Date End Date Lazaro Lopez MD PCP - General Family Medicine 06/06/19 01/09/24 documented as of this encounter
--- OUTSIDE RECORDS SUMMARY | 2025-06-12 12:28 | XMS_ITS | Encounter Summary ---
Author Organization [facility] Address [address] [place] [address] Phone Care Team Providers Care Underwater Hunter Name Role Phone Lazaro Lopez MD Primary Care Provider [phone] Reason for Visit * Reason Comments Medication Refill Encounter Details Date Type Department Care Team (Late st Contact Info) Description 04/11/2022 Refill [facility] [address] [place] [address] Lazaro Lopez MD [address] [place] [address] Medication Refill Social History Tobacco Use Types [...] documented as of this encounter Care Teams Underwater Hunter Relationship Specialty Start Date End Date Lazaro Lopez MD PCP - General Family Medicine 06/06/19 01/09/24 documented as of this encounter
--- OUTSIDE RECORDS SUMMARY | 2025-06-12 12:28 | XMS_ITS | Encounter Summary ---
Author Organization [facility] Address [address] [place] [address] Phone Care Team Providers Care Labor Conciliator Name Role Phone Lazaro Lopez MD Primary Care Provider [phone] Reason for Visit * Reason Comments Medication Refill Encounter Details Date Type Department Care Team (Late st Contact Info) Description 02/13/2022 Refill [facility] [address] [place] [address] Lazaro Lopez MD [address] [place] [address] Medication Refill Social History Tobacco Use Types [...] documented as of this encounter Care Teams Labor Conciliator Relationship Specialty Start Date End Date Lazaro Lopez MD PCP - General Family Medicine 06/06/19 01/09/24 documented as of this encounter
--- OUTSIDE RECORDS SUMMARY | 2025-06-12 12:28 | XMS_ITS | Clinical Summary ---
Author Organization [facility] Address [address] [place] [address] Phone Care Team Providers Care Senior Security Analyst Name Role Phone Unavailable Primary Care Provider [...] DAILY. 90 Tablet 3 1 Active nystatin 081986 UNIT/GM Powder APPLY 3 TIMES DAILY. APPLY [...] Cervical Cancer Screening (CCS) 1997 HPV/Cotest 1997 Cologuard 2012 Colonoscopy 2012 Colorectal Cancer Screening 2012 Immunochemical Fecal Occult Blood 2012 Zoster Immunization (1 of 2) 2017 Pneumococcal Immunization (5 0+ years) (2 of 2 - PCV) 08/18/2021 08/18/2020 SARS-COV-2 Immunization ( - 2023- season) 2024 Influenza Immunization (#1) 06/17/202511/2019, 09/10/2019, 08/24/2015 Respiratory Syncytial Virus (RSV) Immunization [...]
--- OUTSIDE RECORDS SUMMARY | 2025-06-12 12:28 | XMS_ITS | Encounter Summary ---
Author Organization [facility] Address [address] [place] [address] Phone Care Team Providers Care Circular Saw Filer Name Role Phone Lazaro Lopez MD Primary Care Provider [phone] Reason for Visit * Reason Onset Date Comments Medication Refill 11/20/2021 Encounter Details Date Type Department Care Team (Late st Contact Info) Description 11/20/2021 Refill [facility] - Family Medicine [facility] [address] [place] [address] Lazaro Lopez MD [address] [place] [address] Medication Refill Social History Tobacco Use Types [...] encounter Miscellaneous Notes * Telephone Encounter - Mrailia Chou RN - 11/20/2021 1:59 PM CST [...] requirements Passed - No active on record R/WASTEWATER PROJECT ENGINEER documented in this encounter Plan of Treatment Not on file documented as of this encounter Visit Diagnoses Diagnosis Gastroesophageal reflux disease with esophagitis documented in this encounter Additional Health Concerns Assessment Noted Time PHQ-9 Depression Total Score: 24 019 1:00 PM CDT documented as of this encounter Care Teams Circular Saw Filer Relationship Specialty Start Date End Date Lazaro Loepz MD PCP - General Family Medicine 06/06/19 01/09/24 documented as of this encounter
--- OUTSIDE RECORDS SUMMARY | 2025-06-12 12:28 | XMS_ITS | Encounter Summary ---
Author Organization [facility] Address [address] [place] [address] Phone Care Team Providers Care Child Development Professor Name Role Phone Lazaro Lopez MD Primary Care Provider [phone] Reason for Visit * Reason Comments Medication Refill Encounter Details Date Type Department Care Team (Late st Contact Info) Description 09/18/2021 Refill [facility] [address] [place] [address] Lazaro Lopez MD [address]1 [place] [address] Medication Refill Social History Tobacco Use Types [...] Requested Prescriptions Pending Prescriptions Disp Refills nystatin 610716 UNIT/GM Powder [Pharmacy Med Name: NYSTOP [id number] UNIT/GM POWD [id number] Powder] 60 g 2 Sig: APPLY 3 TIMES DAILY. APPLY TO AFFECTED AREA DIRECTED. [facility] Off-Protocol Failed - 09/18/2021 3:56 PM Failed - Medication not assigned to a protocol, review manually. Passed - Valid encounter within last 12 months Past Office Visits Recent Outpatient Visits 8 months ago [facility] L[facility] Wheat MD 1 year ago Meralgia paresthetica, right lower limb [facility] Lazaro Wheat MD 1 year ago Plantar fasciitis of left foot [facility] Lazaro Wheat MD 1 year ago Gastroesophageal reflux disease with esophagitis [facility] Lazaro Wheat MD 1 year ago Essential hypertension [facility] Lazaro Wheat MD Upcoming Appointments WATERWAY TRAFFIC CHECKER - Recent and Past Visits Recent Visits [...] 90 days and meeting all other requirements T CLERK documented in this encounter Plan of Treatment Not on file documented as of this encounter Visit Diagnoses Not on filedocumented in this encounter Additional Health Concerns Assessment Noted Time PHQ-9 Depression Total Score: 24 019 1:00 PM CDT documented as of this encounter Care Teams Child Development Professor Relationship Specialty Start Date End Date Lazaro Lopez MD PCP - General Family Medicine 06/06/19 01/09/24 documented as of this encounter
--- OUTSIDE RECORDS SUMMARY | 2025-06-12 12:28 | XMS_ITS | Encounter Summary ---
Author Organization [facility] Address [address] [place] [address] Phone Care Team Providers Care Well Logging Operator Mud Analysis Name Role Phone Lazaro Lopez MD Primary Care Provider [phone] Reason for Visit * Reason Onset Date Comments Medication Refill 11/03/2021 Encounter Details Date Type Department Care Team (Late st Contact Info) Description 11/03/2021 Refill [facility] - Family Medicine [facility] [address] [place] [address] Lazaro Lopez MD [address] [place] [address] Medication Refill Social History Tobacco Use Types [...] 09/18/21 Omeprazole refilled for 90 days 09/18/21 IT SPECIALIST * Telephone Encounter - Adry Dennis - 11/03/2021 1:59 PM CST Received a faxed Rx request from pharmacy. Reordered refill medication(s) requested and pended for nurse and physician/MELISA review. Refill encounter routed to nurse [employer] for processing. IT SPECIALIST documented in this encounter Plan of Treatment Not on file documented as of this encounter Visit Diagnoses Diagnosis Gastroesophageal reflux disease with esophagitis documented in this encounter Additional Health Concerns Assessment Noted Time PHQ-9 Depression Total Score: 24 06/13/ 019 1:00 PM CDT documented as of this encounter Care Teams Well Logging Operator Mud Analysis Relationship Specialty Start Date End Date Lazaro Lopez MD PCP - General Family Medicine 06/06/19 01/09/24 documented as of this encounter
--- OUTSIDE RECORDS SUMMARY | 2025-06-12 12:28 | XMS_ITS | Clinical Summary ---
Author Organization [facility] [address] [facility] [address] Address [address] [place] [address] Care Team Providers Care Electronics Lead Name Role Phone Huber Contreras MD Primary Care Provider [phone] Kylee Martines NP Unavailable [phone] Luma Gibson Unavailable [phone] Allergies Active Allergy Reactions Criticality Noted Date [...] (01/04/2023): Added automatically from request for surgery [id number] Immunizations Immunization Administration Dates Next Due Tdap 07/29/2024() Surgical History Surgery Date Site/Laterality Comments SHOULDER SURGERY 10/17/1993 - 10/16/1994 Right HERNIA REPAIR 10/17/1985 - 10/16/1986 TRIGGER FINGER RELEASE Right Medical History Medical History Date Comments Acid reflux HTN (hypertension) Mixed hyperlipidemia Frequent UTI Asthma Sleep apnea PONV (postoperative nausea and vomiting) Bipolar disorder 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 Member Subscriber Plan / Payer (Ef fective 2021-Present) Name:Kimberly Bolton Relation to Subscriber:Self Name:Kimberly Bolton Payer ID:[id number] (NAIC) Type:MEDICARE RISK OTHER Address: [address] Advance Directives For more information, please contact: [phone] * Full Code (Latest Code Status on File) Date Activated Date Inactivated Comments 04/26/2023 8:42 PM 04/27/2023 2:23 PM Care Teams Electronics Lead Relationship Specialty Start Date End Date Huber Contreras MD [address] [place] [address] PCP - General Internal Medicine 12/01/21 Kylee Martines NP [address] [facility] [place] [address] Nurse Practitioner Internal Medicine 12/01/21 Luma Gibson PA [address] [facility] [place] [address] Orthopedic Surgery 01/07/23
--- OUTSIDE RECORDS SUMMARY | 2025-06-12 12:28 | XMS_ITS | Encounter Summary ---
Author Organization [facility] Address [address] [place] [address] Phone Care Team Providers Care Materials Engineering Technician Name Role Phone Lazaro Lopez MD Primary Care Provider [phone] Reason for Visit * Reason Comments Medication Refill Encounter Details Date Type Department Care Team (Late st Contact Info) Description 05/07/2022 Refill [facility] [address] [place] [address] Lazaro Lopez MD [address] [place] [address] Medication Refill Social History Tobacco Use Types [...] documented as of this encounter Care Teams Materials Engineering Technician Relationship Specialty Start Date End Date Lazaro Lopez MD PCP - General Family Medicine 06/06/19 01/09/24 documented as of this encounter
--- NOTE | 2025-06-12 13:00 | NEURO_ITS ---
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 ? # Bilateral Ulnar Neuropathy across the elbows. ? # Mild evolving Carpal Tunnel Syndrome. ? # Normal Needle/ EMG exam. Nerve Conduction Studies ?Stim Site NR Peak (ms) P-T Amp (?V) Site1 Site2 Delta-P (ms) Dist (cm) Howard (m/s) Left Median Anti Sensory (2-3nd Digit) Wrist ? 3.8 23.8 Wrist 2-3nd Digit 3.8 14.0 37 Wrist ? 3.5 32.7 Wrist 2-3nd Digit 3.8 14.0 37 Right Median Anti Sensory (2-3nd Digit) Wrist ? 3.5 35.3 Wrist 2-3nd Digit 3.5 14.0 40 Wrist ? 3.4 35.0 Wrist 2-3nd Digit 3.5 14.0 40 Left Radial Anti Sensory (Base 1st Digit) Wrist ? 2.7 7.8 Wrist Base 1st Digit 2.7 0.0 Right Radial Anti Sensory (Base 1st Digit) Wrist ? 2.4 9.1 Wrist Base 1st Digit 2.4 0.0 Left Ulnar Anti Sensory (5th Digit) Wrist ? 2.5 35.6 Wrist 5th Digit 2.5 14.0 56 Right Ulnar Anti Sensory (5th Digit) Wrist ? 2.3 35.3 Wrist 5th Digit 2.3 14.0 61 ?Stim Site NR Onset (ms) O-P Amp (mV) Site1 Site2 Delta-0 (ms) Dist (cm) Howard (m/s) Left Median Motor (Abd Poll Brev) Wrist ? 4.3 1.6 Elbow Wrist 4.0 27.0 67 Elbow ? 8.3 2.3 Right Median Motor (Abd Poll Brev) Wrist ? 3.9 3.2 Elbow Wrist 4.1 27.0 66 Elbow ? 8.0 3.2 Left Ulnar Motor (Abd Dig Minimi) Wrist ? 2.7 7.5 A Elbow Wrist 5.5 29.0 53 A Elbow ? 8.2 3.8 B Elbow Wrist 3.9 21.0 54 B Elbow ? 6.6 4.1 Right Ulnar Motor (Abd Dig Minimi) Wrist ? 2.4 7.8 A Elbow Wrist 5.1 28.0 55 A Elbow ? 7.5 6.3 B Elbow Wrist 3.5 19.0 54 B Elbow ? 5.9 5.4 F Wave Studies ?NR F-Lat (ms) L-R F-Lat (ms) Left Median (Mrkrs) (Abd Poll Brev) ? 28.54 2.81 Right Median (Mrkrs) (Abd Poll Brev) ? 27.89 0.65 Left Ulnar (Mrkrs) (Abd Dig Min) ? 27.42 1.09 Right Ulnar (Mrkrs) (Abd Dig Min) ? 26.33 1.09 Electromyography ?Side Muscle Nerve Root Ins Act Fibs Amp Dur Recrt Comment Right 1stDorInt Ulnar C8-T1 Nml Nml Nml Nml Nml Right Ext Indicis Radial (Post Int) C7-8 Nml Nml Nml Nml Nml Right Ext Digitorum Radial (Post Int) C7-8 Nml Nml Nml Nml Nml Right BrachioRad Radial C5-6 Nml Nml Nml Nml Nml Right PronatorTeres Median C6-7 Nml Nml Nml Nml Nml Right Abd Poll Brev Median C8-T1 Nml Nml Nml Nml Nml Right ABD Dig Min Ulnar C8-T1 Nml Nml Nml Nml Nml Right FlexPolLong Median (Ant Int) C7-8 Nml Nml Nml Nml Nml Right Abd Poll Long Radial (Post Int) C7-8 Nml Nml Nml Nml Nml Left 1stDorInt Ulnar C8-T1 Nml Nml Nml Nml Nml Left Ext Indicis Radial (Post Int) C7-8 Nml Nml Nml Nml Nml Left Ext Digitorum Radial (Post Int) C7-8 Nml Nml Nml Nml Nml Left BrachioRad Radial C5-6 Nml Nml Nml Nml Nml Left PronatorTeres Median C6-7 Nml Nml Nml Nml Nml Left Abd Poll Brev Median C8-T1 Nml Nml Nml Nml Nml Left ABD Dig Min Ulnar C8-T1 Nml Nml Nml Nml Nml Left FlexPolLong Median (Ant Int) C7-8 Nml Nml Nml Nml Nml Left Abd Poll Long Radial (Post Int) C7-8 Nml Nml Nml Nml Nml
== END 2025-06-12 12:25 | disposition home or self-care (01) ==
PROVIDERS: PCP Nurse Practitioner Adult Health; Visit Provider Plastic Surgery
DX: G56.23 Lesion of ulnar nerve, bilateral upper limbs (principal); G56.01 Carpal tunnel syndrome, right upper limb; G56.02 Carpal tunnel syndrome, left upper limb
CPT/HCPCS: 95886; 95911

== ENCOUNTER 2025-06-19 13:42 | Outpatient (CLI) | payer OTHER, MEDICAID, SELFPAY ==
--- OUTSIDE RECORDS SUMMARY | 2025-06-19 14:55 | XMS_ITS | Encounter Summary ---
Author Organization [facility] Address [address] [place] [address] Phone Care Team Providers Care Ship'S Cook Name Role Phone Lazaro Lopez MD Primary Care Provider [phone] Reason for Visit * Reason Comments Medication Refill Encounter Details Date Type Department Care Team ([facility] st Contact Info) Description 01/12/2021 Refill [facility] [address] [place], [place] [id number] Lazaro Lopez MD [address] [place], [place] [id number] Medication Refill Social History Tobacco Use Types [...] COVID-19? No / Unsure 12/26/2020 2:28 PM REPORTING CONSULTANT documented as of this encounter Miscellaneous Notes * Telephone Encounter - Marilia Chou RN - 01/12/2021 12:31 PM CDT Medication failed the protocol, provider to review and approve the medication order if appropriate. Requested Prescriptions Pending Prescriptions Disp Refills Ventolin HFA 108 (90 Base) MCG/ACT Aerosol Solution [Pharmacy Med Name: VENTOLIN HFA 90 MCG [id number] (90 BAS Aerosol] 36 g 2 Sig: [...] Recent Outpatient Visits 2 weeks ago Hypercholesterolemia [facility] Lazaro Wheat MD 4 months ago Meralgia paresthetica, right lower limb [facility] Lazaro Wheat MD 5 months ago Plantar fasciitis of left foot [facility] Lazaro Wheat MD 7 months ago Gastroesophageal reflux disease with esophagitis [facility] Lazaro Wheat MD 1 year ago Essential hypertension [facility] Lazaro Wheat MD Upcoming Appointments Future Appointments In 5 months Lazaro Lopez MD [facility] Donovan Saldaña [facility] 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 Visits Recent Visits Date Type Provider Dept 12/26/20 Office Visit Lazaro Lopez MD [facility] 08/20/20 Office Visit Lazaro Lopez MD [facility] 07/18/20 Office Visit Lazaro Lopez MD [facility] 06/12/20 Office Visit Lazaro Lopez MD [facility] 12/10/19 Office Visit Lazaro Lopez MD [facility] 10/29/19 Office Visit Naomi Aleman, DOG LICENSER, CUSTOMER ENGINEER [facility] Showing recent visits within past 460 days [...] documented as of this encounter Care Teams Ship'S Cook Relationship Specialty Start Date End Date Lazaro Lopez MD PCP - General Family Medicine 06/06/19 01/09/24 documented as of this encounter
--- OUTSIDE RECORDS SUMMARY | 2025-06-19 14:55 | XMS_ITS | Encounter Summary ---
Author Organization [facility] Address [address] [place] [address] Phone Care Team Providers Care Professor Of Violin Name Role Phone Lazaro Lopez MD Primary Care Provider [phone] Reason for Visit * Reason Comments Medication Refill Encounter Details Date Type Department Care Team (Late st Contact Info) Description 02/13/2022 Refill [facility] [address] [place] [address] Lazaro Lopez MD [address] [place] [address] Medication Refill Social History Tobacco Use Types [...] documented as of this encounter Care Teams Professor Of Violin Relationship Specialty Start Date End Date Lazaro Lopez MD PCP - General Family Medicine 06/06/19 01/09/24 documented as of this encounter
--- OUTSIDE RECORDS SUMMARY | 2025-06-19 14:55 | XMS_ITS | Encounter Summary ---
Author Organization [facility] Address [address] [place] [address] Phone Care Team Providers Care Boiler Attendant Name Role Phone Lazaro Lopez MD Primary Care Provider Reason for Visit * Reason Onset Date Comments Medication Refill 11/03/2021 Encounter Details Date Type Department Care Team (Late st Contact Info) Description 11/03/2021 Refill [facility] - Family Medicine [facility] [address] [place] [address] Lazaro Lopez MD [address] [place] [address] Medication Refill Social History Tobacco Use Types [...] 09/18/21 Omeprazole refilled for 90 days 09/18/21 DER WATCH PARTS * Telephone Encounter - Adry Dennis - 11/03/2021 1:59 PM CST Received a faxed Rx request from pharmacy. Reordered refill medication(s) requested and pended for nurse and physician/MELISA review. Refill encounter routed to nurse [email or web address] for processing. DER WATCH PARTS documented in this encounter Plan of Treatment Not on file documented as of this encounter Visit Diagnoses Diagnosis Gastroesophageal reflux disease with esophagitis documented in this encounter Additional Health Concerns Assessment Noted Time PHQ-9 Depression Total Score: 24 06/13/ 019 1:00 PM CDT documented as of this encounter Care Teams Boiler Attendant Relationship Specialty Start Date End Date Lazaro Lopez MD PCP - General Family Medicine 06/06/19 01/09/24 documented as of this encounter
--- OUTSIDE RECORDS SUMMARY | 2025-06-19 14:55 | XMS_ITS | Encounter Summary ---
Author Organization [facility] Address [address] [place] [address] Phone Care Team Providers Care Combiner Name Role Phone Lazaro Lopez MD Primary Care Provider Reason for Visit * Reason Comments Medication Refill Encounter Details Date Type Department Care Team (Late st Contact Info) Description 09/18/2021 Refill [facility] [address] [place], [place] [id number] Lazaro Lopez MD [address] [place] [address] Medication Refill Social History Tobacco [...] requirements Passed - No active on record H ASSEMBLER ELECTRICAL documented in this encounter Plan of Treatment Not on file documented as of this encounter Visit Diagnoses Diagnosis Gastroesophageal reflux disease with esophagitis documented in this encounter Additional Health Concerns Assessment Noted Time PHQ-9 Depression Total Score: 24 019 1:00 PM CDT documented as of this encounter Care Teams Combiner Relationship Specialty Start Date End Date Lazaro Lopez MD PCP - General Family Medicine 06/06/19 01/09/24 documented as of this encounter
--- OUTSIDE RECORDS SUMMARY | 2025-06-19 14:55 | XMS_ITS | Encounter Summary ---
Author Organization [facility] Address [address] [place] [address] Phone Care Team Providers Care Agricultural Inspector Name Role Phone Lazaro Lopez MD Primary Care Provider [phone] Reason for Visit * Reason Comments Medication Refill Encounter Details Date Type Department Care Team (Late st Contact Info) Description 05/04/2021 Refill [facility] [address] [place], [place] [id number] Lazaro Lopez MD [address] [place] [address] Medication Refill Social History Tobacco [...] [Pharmacy Med Name: VENTOLIN HFA 90 MCG [id number] (90 BAS Aerosol] 36 g 2 Sig: [...] documented as of this encounter Care Teams Agricultural Inspector Relationship Specialty Start Date End Date Lazaro Lopez MD PCP - General Family Medicine 06/06/19 01/09/24 documented as of this encounter
--- OUTSIDE RECORDS SUMMARY | 2025-06-19 14:55 | XMS_ITS | Encounter Summary ---
Author Organization [facility] Address [address] [place] [address] Phone Care Team Providers Care Gear Lapper Name Role Phone Lazaro Lopez MD Primary Care Provider [phone] Reason for Visit * Reason Comments Medication Refill Encounter Details Date Type Department Care Team ([facility] st Contact Info) Description 09/22/2020 Refill [facility] [address] [place], [place] [id number] Lazaro Lopez MD [address] [place], [place] [id number] Medication Refill Social History Tobacco Use Types [...] COVID-19? No / Unsure 09/05/2020 2:50 PM EMERGENCY ROOM RN documented as of this encounter Miscellaneous Notes * Telephone Encounter - Chandler Choukrish Santana RN - 09/22/2020 10:23 AM CST Medication failed the protocol, provider to review and approve the medication order if appropriate. Requested Prescriptions Pending Prescriptions Disp Refills Ventolin HFA 108 (90 Base) MCG/ACT Aerosol Solution [Pharmacy Med Name: VENTOLIN HFA 90 MCG [id number] (90 BAS Aerosol] 36 g 2 Sig: [...] month ago Meralgia paresthetica, right lower limb [facility] Lazaro Ledbetter MD 2 months ago Plantar fasciitis of left foot [facility] Lazaro Ledbetter MD 3 months ago Gastroesophageal reflux disease with esophagitis [facility] Lazaro Wheat MD 9 months ago Essential hypertension [facility] Lazaro Ledbetter MD 10 months ago Meralgia paresthetica of right side [facility] APN, STAFF WEAPONS OFFICER Upcoming Appointments Future Appointments In 2 months Lazaro Lopez MD [facility] Piotr [facility] CHEMICAL EQUIPMENT REPAIRER - Recent and Past Visits Recent Visits Date Type Provider Dept 08/20/20 Office Visit Lazaro Lopez MD [facility] 07/18/20 Office Visit Lazaro Lopez MD [facility] 06/12/20 Office Visit Lazaro Lopez MD [facility] 12/10/19 Office Visit Lazaro Lopez MD [facility] 10/29/19 Office Visit Naomi Aleman APN, STAFF WEAPONS OFFICER [facility] 06/27/19 Office Visit Lazaro Lopez [...] Readings from Last 1 Encounters: 08/20/20 122/64 GENCY ROOM RN documented in this encounter Plan of Treatment Not on file documented as of this encounter Visit Diagnoses Not on filedocumented in this encounter Additional Health Concerns Assessment Noted Time PHQ-9 Depression Total Score: 24 019 1:00 PM CDT documented as of this encounter Care Teams Gear Lapper Relationship Specialty Start Date End Date Lazaro Lopez MD PCP - General Family Medicine 06/06/19 01/09/24 documented as of this encounter
--- OUTSIDE RECORDS SUMMARY | 2025-06-19 14:55 | XMS_ITS | Encounter Summary ---
Author Organization [facility] Address [address] [place] [address] Phone Care Team Providers Care Media Production Operator Name Role Phone Lazaro Lopez MD Primary Care Provider [phone] Reason for Visit * Reason Comments Medication Refill Encounter Details Date Type Department Care Team (Late st Contact Info) Description 03/10/2021 Refill [facility] [address] [place] [address] Lazaro Lopez MD [address] [place] [address] Medication Refill Social History Tobacco Use Types [...] documented as of this encounter Care Teams Media Production Operator Relationship Specialty Start Date End Date Lazaro Lopez MD PCP - General Family Medicine 06/06/19 01/09/24 documented as of this encounter
--- OUTSIDE RECORDS SUMMARY | 2025-06-19 14:55 | XMS_ITS | Encounter Summary ---
Author Organization [facility] Address [address] [place] [address] Phone Care Team Providers Care Sewage Screen Operator Name Role Phone Lazaro Lopez MD Primary Care Provider [phone] Reason for Visit * Reason Comments Medication Refill Encounter Details Date Type Department Care Team (Late st Contact Info) Description 04/24/2021 Refill [facility] [address] [place], [place] [phone] Laazro Lopez MD [address] [place] [address] Medication Refill Social History Tobacco [...] documented as of this encounter Care Teams Sewage Screen Operator Relationship Specialty Start Date End Date Lazaro Lopez MD PCP - General Family Medicine 06/06/19 01/09/24 documented as of this encounter
--- OUTSIDE RECORDS SUMMARY | 2025-06-19 14:55 | XMS_ITS | Encounter Summary ---
Author Organization [facility] Address [address] [place] [address] Phone Care Team Providers Care Surgical Brace Maker Name Role Phone Lazaro Lopez MD Primary Care Provider [phone] Reason for Visit * Reason Comments Medication Refill Encounter Details Date Type Department Care Team ([facility] st Contact Info) Description 03/09/2021 Refill [facility] Center [address] [place], [place] [id number] Lazaro Lopez MD [address] [place], [place] [id number] Medication Refill Social History Tobacco Use Types [...] documented as of this encounter Care Teams Surgical Brace Maker Relationship Specialty Start Date End Date Lazaro Lopez MD PCP - General Family Medicine 06/06/19 01/09/24 documented as of this encounter
--- OUTSIDE RECORDS SUMMARY | 2025-06-19 14:55 | XMS_ITS | Encounter Summary ---
Author Organization [facility] Address [address] [place] [address] Phone Care Team Providers Care Legislative Assistant Name Role Phone Lazaro Lopez MD Primary Care Provider [phone] Reason for Visit * Reason Comments Medication Refill Encounter Details Date Type Department Care Team (Late st Contact Info) Description 2021 Refill [facility] - Family [facility] [address] [place] [address] Lazaro Lopez MD [address] [place] [address] Medication Refill Social History Tobacco Use Types [...] omeprazole (PriLOSEC) 40 MG CAPSULE DELAYED RELEASE [[id number]] 1303 Status: Active Mode: Ordering in Standing Orders mode Communicated by: Prisca Lackey RN Ordering user: Prisca Lackey RN 06/18/21 1250 Ordering provider: Lazaro Lopez MD Authorized by: Lazaro Lopez MD Frequency: BID 06/18/21 - Until Discontinued Released by: Prisca Lackey RN 06/18/21 1250 Diagnoses Gastroesophageal reflux disease with esophagitis [K21.00] Associated Diagnoses Gastroesophageal reflux disease with esophagitis Pharmacy [address] documented in this encounter Plan of Treatment Not on file documented as of this encounter Visit Diagnoses Diagnosis Gastroesophageal reflux disease with esophagitis documented in this encounter Additional Health Concerns Assessment Noted Time PHQ-9 Depression Total Score: 24 019 1:00 PM CDT documented as of this encounter Care Teams Legislative Assistant Relationship Specialty Start Date End Date Lazaro Lopez MD PCP - General Family Medicine 06/06/19 01/09/24 documented as of this encounter
--- OUTSIDE RECORDS SUMMARY | 2025-06-19 14:55 | XMS_ITS | Clinical Summary ---
Author Organization [facility] [address] [facility] lt Address [address] [place] [address] Care Team Providers Care Strategy Manager Name Role Phone Huber Contreras MD Primary Care Provider [phone] Kylee Martines NP Unavailable [phone] Luma Gibson Unavailable [phone] Allergies Active Allergy Reactions Criticality Noted Date [...] (01/04/2023): Added automatically from request for surgery [id number] Immunizations Immunization Administration Dates Next Due Tdap [...] on file 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 Gender Identity Not on file Sexual Orientation [...] Vaccine (#1) 2025 0, 09/10/2019, 08/24/2015 Insurance [facility] HEALTHCARE [facility] Member Subscriber Plan / Payer (Ef fective 2021-Present) Name:Kimberly Bolton Relation to Subscriber:Self Name:Kimberly Bolton Payer ID:[id number] (NAIC) Type:MEDICARE RISK OTHER Address: [address] Advance Directives For more information, please contact: [phone] * Full Code (Latest Code Status on File) Date Activated Date Inactivated Comments 04/26/2023 8:42 PM 04/27/2023 2:23 PM Care Teams Strategy Manager Relationship Specialty Start Date End Date Huber Contreras MD [address] [place] [address] PCP - General Internal Medicine 12/01/21 Kylee Martines NP [address] [facility] [address] Nurse Practitioner Internal Medicine 12/01/21 Luma Gibson PA [address] [facility] [place] [address] Orthopedic Surgery 01/07/23
--- OUTSIDE RECORDS SUMMARY | 2025-06-19 14:55 | XMS_ITS | Encounter Summary ---
Author Organization [facility] Address [address] [place] [address] Phone Care Team Providers Care Print Machine Operator Name Role Phone Lazaro Lopez MD Primary Care Provider [phone] Reason for Visit * Reason Comments Medication Refill Encounter Details Date Type Department Care Team (Late st Contact Info) Description 09/18/2021 Refill [facility] - Family Medicine [facility] [address] [place] [address] Lazaro Lopez MD [address] [place] [address] Medication Refill Social History Tobacco Use Types [...] Requested Prescriptions Pending Prescriptions Disp Refills nystatin [id number] UNIT/GM Powder [Pharmacy Med Name: NYSTOP [id number] UNIT/GM POWD [id number] Powder] 60 g 2 Sig: APPLY 3 TIMES DAILY. APPLY TO AFFECTED AREA DIRECTED. [facility] Off-Protocol Failed - 09/18/2021 3:56 PM Failed - Medication not assigned to a protocol, review manually. Passed - Valid encounter within last 12 months Past Office Visits Recent Outpatient Visits 8 months ago [facility] 1 year ago Meralgia paresthetica, right lower limb [facility] Lazaro Wheat MD 1 year ago Plantar fasciitis of left foot [facility] Lazaro Wheat MD 1 year ago Gastroesophageal reflux disease with esophagitis [facility] Lazaro Wheat MD 1 year ago Essential hypertension [facility] Lazaro Wheat MD Upcoming Appointments CASINO FLOOR RUNNER - Recent and Past Visits Recent Visits [...] days and meeting all other requirements T MESSENGER documented in this encounter Plan of Treatment Not on file documented as of this encounter Visit Diagnoses Not on filedocumented in this encounter Additional Health Concerns Assessment Noted Time PHQ-9 Depression Total Score: 24 019 1:00 PM CDT documented as of this encounter Care Teams Print Machine Operator Relationship Specialty Start Date End Date Lazaro Lopez MD PCP - General Family Medicine 06/06/19 01/09/24 documented as of this encounter
--- OUTSIDE RECORDS SUMMARY | 2025-06-19 14:55 | XMS_ITS | Encounter Summary ---
Author Organization [facility] Address [address] [place] [address] Phone Care Team Providers Care Network Systems Analyst Name Role Phone Lazaro Lopez MD Primary Care Provider [phone] Reason for Visit * Reason Comments Medication Refill Encounter Details Date Type Department Care Team (Late st Contact Info) Description 07/20/2021 Refill [facility] Center [address] [place], [place] [id number] Lazaro Lopez MD [address] [place] [address] Medication Refill Social History Tobacco [...] [Pharmacy Med Name: VENTOLIN HFA 90 MCG [id number] (90 BAS Aerosol] 36 g 2 Sig: [...] documented as of this encounter Care Teams Network Systems Analyst Relationship Specialty Start Date End Date Lazaro Lopez MD PCP - General Family Medicine 06/06/19 01/09/24 documented as of this encounter
--- OUTSIDE RECORDS SUMMARY | 2025-06-19 14:55 | XMS_ITS | Encounter Summary ---
Author Organization [facility] Address [address] [place] [address] Phone Care Team Providers Care Center Rep Name Role Phone Lazaro Lopez MD Primary Care Provider [phone] Reason for Visit * Reason Comments Medication Refill Encounter Details Date Type Department Care Team (Late st Contact Info) Description 12/05/2020 Refill [facility] [address] [place] [address] Lazaro Lopez MD [address] [place], [place] [id number] Medication Refill Social History Tobacco Use Types [...] documented as of this encounter Care Teams Center Rep Relationship Specialty Start Date End Date Lazaro Lopez MD PCP - General Family Medicine 06/06/19 01/09/24 documented as of this encounter
--- OUTSIDE RECORDS SUMMARY | 2025-06-19 14:55 | XMS_ITS | Encounter Summary ---
Author Organization [facility] Address [address] [place] [address] Phone Care Team Providers Care Processing Tech Name Role Phone Lazaro Lopez MD Primary Care Provider Reason for Visit * Reason Comments Medication Refill Encounter Details Date Type Department Care Team ([facility] st Contact Info) Description 03/11/2021 Refill [facility] Center [address] [place], [place] [id number] Lazaro Lopez MD [address] [place], [place] [address] Medication Refill Social History Tobacco Use Types [...] documented as of this encounter Care Teams Processing Tech Relationship Specialty Start Date End Date Lazaro Lopez MD PCP - General Family Medicine 06/06/19 01/09/24 documented as of this encounter
--- OUTSIDE RECORDS SUMMARY | 2025-06-19 14:55 | XMS_ITS | Encounter Summary ---
Author Organization [facility] Address [address] [place] [address] Phone Care Team Providers Care Inventory Accountant Name Role Phone Lazaro Lopez MD Primary Care Provider [phone] Reason for Visit * Reason Comments Medication Refill Encounter Details Date Type Department Care Team (Late st Contact Info) Description 12/09/2020 Refill [facility] Center [address] [place], [place] [phone] Lazaro Lopez MD [address] [place] [address] Medication Refill Social History Tobacco [...] months ago Meralgia paresthetica, right lower limb [facility] Lazaro Ledbetter MD 4 months ago Plantar fasciitis of left foot [facility] Lazaro Ledbetter MD 6 months ago Gastroesophageal reflux disease with esophagitis [facility] Lazaro Ledbetter MD 1 year ago [facility] year [facility] Meralgia paresthetica of right side [facility] Naomi Aleman APN, PUMP AND BLOWER OPERATOR Upcoming Appointments Future Appointments In 1 week Lazaro Lopez MD [facility] Obed Saenz MD [facility] Neurology [facility] EDUCATION LIAISON - Recent and Past Visits Recent Visits Date Type Provider Dept 08/20/20 Office Visit Lazaro Lopez MD [facility] 07/18/20 Office Visit Lazaro Lopez MD [facility] 06/12/20 Office Visit Lazaro Lopez MD [facility] 12/10/19 Office Visit Lazaro Lopez MD [facility] 10/29/19 Office Visit Naomi Aleman APN, PUMP AND BLOWER OPERATOR [facility] Show[facility] recent visits within past 460 days [...] months ago Meralgia paresthetica, right lower limb [facility] Lazaro Ledbetter MD 4 months ago Plantar fasciitis of left foot [facility] Lazaro Ledbetter MD 6 months ago Gastroesophageal reflux disease with esophagitis [facility] 1 year [facility] 1 year ago Meralgia [facility]aresthetica of right side [facility] APN, PUMP AND BLOWER OPERATOR Upcoming Appointments Future Appointments In 1 week Lazaro Lopez MD [facility] Obed Saenz MD [facility] Neurology [facility] EDUCATION LIAISON - Recent and Past Visits Recent Visits Date Type Provider Dept 08/20/20 Office Visit Lazaro Lopez MD [facility] 07/18/20 Office Visit Lazaro Lopez MD [facility] 06/12/20 Office Visit Lazaro Lopez MD [facility] 12/10/19 Office Visit Lazaro Lopez MD [facility] 10/29/19 Office Visit Naomi Aleman APN, PUMP AND BLOWER OPERATOR [facility] Showing recent visits within past 460 [...] months ago Meralgia paresthetica, right lower limb [facility] 4 months ago Plantar fasciitis of left foot [facility] Lazaro Ledbetter MD 6 months ago Gastroesophageal reflux disease with esophagitis [facility] 1 year ago [facility] 1 year ago Meralgia paresthetica of right side [facility] Naomi Aleman APN, PUMP AND BLOWER OPERATOR Upcoming Appointments Future Appointments In 1 week Lazaro Lopez MD [facility], [facility] In 1 week Obed Saenz MD [facility] EDUCATION LIAISON - Recent and Past Visits Recent Visits Date Type Provider Dept 08/20/20 Office Visit Lazaro Lopez MD [facility] 07/18/20 Office Visit Lazaro Lopez MD [facility] 06/12/20 Office Visit Lazaro Lopez MD [facility] 12/10/19 Office Visit Lazaro Lopez MD [facility] 10/29/19 Office Visit Naomi Aleman APN, PUMP AND BLOWER OPERATOR [facility] Showing recent visits within past 460 [...] months ago Meralgia paresthetica, right lower limb [facility] 4 months ago [facility]ar fasciitis of left foot [facility] 6 months ago Gastroesophageal reflux disease with esophagitis [facility] 1 year ago [facility] 1 year ago Meralgia paresthetica of right side [facility] Naomi Aleman APN, PUMP AND BLOWER OPERATOR Upcoming Appointments Future Appointments In 1 week Lazaro Lopez MD [facility], [facility] In 1 week Obed Saenz MD [facility] Neurology [facility], [facility] EDUCATION LIAISON - Recent and Past Visits Recent Visits Date Type Provider Dept 08/20/20 Office Visit Lazaro Lopez MD [facility] 07/18/20 Office Visit Lazaro Lopez MD [facility] 06/12/20 Office Visit Lazaro Lopez MD [facility] 12/10/19 Office Visit Lazaro Lopez MD [facility] 10/29/19 Office Visit Naomi Aleman APN[facility] Showing recent visits within past 460 days with a meds authorizing provider and meeting all other requirements Future Appointments Date Type Provider Dept 12/19/20 Appointment Lazaro Lopez MD [facility] Showing future appointments within next 90 days with a meds authorizing provider and meeting all other requirements GRADER documented in this encounter Plan of Treatment Not on file documented as of this encounter Visit Diagnoses Not on filedocumented in this encounter Additional Health Concerns Assessment Noted Time PHQ-9 Depression Total Score: 24 019 1:00 PM CDT documented as of this encounter Care Teams Inventory Accountant Relationship Specialty Start Date End Date Lazaro Lopez MD PCP - General Family Medicine 06/06/19 01/09/24 documented as of this encounter
--- OUTSIDE RECORDS SUMMARY | 2025-06-19 14:55 | XMS_ITS | Encounter Summary ---
Author Organization [facility] Address [address] [place] [address] Phone Care Team Providers Care Lead Systems Architect Name Role Phone Lazaro Lopez MD Primary Care Provider [phone] Reason for Visit * Reason Comments Medication Refill Encounter Details Date Type Department Care Team ([facility] st Contact Info) Description 10/14/2020 Refill [facility] Center [address] [place], [place] [phone] Lazaro Lopez MD [address] [place], [place] [id number] Medication Refill Social History Tobacco Use Types [...] Coronavirus / COVID-19? Yes 10/08/2020 4:00 PM ITEM PROCESSING CLERK documented as of this encounter Miscellaneous Notes * Telephone Encounter - Sehr, Marilia L, RN - 10/14/2020 1:52 PM CST The original prescription was discontinued on 09/19/2020 by Lazaro Lopez MD PROCESSING CLERK documented in this encounter Plan of Treatment Not on file documented as of this encounter Visit Diagnoses Not on filedocumented in this encounter Additional Health Concerns Assessment Noted Time PHQ-9 Depression Total Score: 24 019 1:00 PM CDT documented as of this encounter Care Teams Lead Systems Architect Relationship Specialty Start Date End Date Lazaro Lopez MD PCP - General Family Medicine 06/06/19 01/09/24 documented as of this encounter
--- OUTSIDE RECORDS SUMMARY | 2025-06-19 14:55 | XMS_ITS | Encounter Summary ---
Author Organization [facility] Address [address] [place] [address] Phone Care Team Providers Care Editor Managing Newspaper Name Role Phone Lazaro Lopez MD Primary Care Provider [phone] Reason for Visit * Reason Onset Date Comments Medication Refill 11/20/2021 Encounter Details Date Type Department Care Team (Late st Contact Info) Description 11/20/2021 Refill [facility] - Family Medicine [facility] [address] [place] [address] Lazaro Lopez MD [address] [place] [address] Medication Refill Social History Tobacco Use Types [...] requirements Passed - No active on record KING MACHINE SET UP OPERATOR TOOL documented in this encounter Plan of Treatment Not on file documented as of this encounter Visit Diagnoses Diagnosis Gastroesophageal reflux disease with esophagitis documented in this encounter Additional Health Concerns Assessment Noted Time PHQ-9 Depression Total Score: 24 019 1:00 PM CDT documented as of this encounter Care Teams Editor Managing Newspaper Relationship Specialty Start Date End Date Lazaro Lopez MD PCP - General Family Medicine 06/06/19 01/09/24 documented as of this encounter
--- OUTSIDE RECORDS SUMMARY | 2025-06-19 14:55 | XMS_ITS | Patient Health Record ---
Author Organization [facility] Mundi Address [facility] [address] [facility] [address] [place] [address] Care Team Providers Care Lithographic Retoucher Apprentice Name Role Phone GeronimoTripp Unavailable [phone] Reason For Referral No Information Plan Of Treatment No Information
--- OUTSIDE RECORDS SUMMARY | 2025-06-19 14:56 | XMS_ITS | Encounter Summary ---
Author Organization [facility] Address [address] [place] [address] Phone Care Team Providers Care Domestic Technician Name Role Phone Lazaro Lopez MD Primary Care Provider [phone] Reason for Visit * Reason Comments Medication Refill Encounter Details Date Type Department Care Team (Late st Contact Info) Description 04/11/2022 Refill [facility] - Family Medicine [facility] [address] [place] [address] Lazaro Lopez MD [address] [place] [address] Medication Refill Social History Tobacco Use Types [...] not set up * Telephone Encounter - Mairlia Chou RN - 04/12/2022 11:51 AM CDT Patient needs an appointment with PCP documented in this encounter Plan of Treatment Not on file documented as of this encounter Visit Diagnoses Diagnosis Gastroesophageal reflux disease with esophagitis documented in this encounter Additional Health Concerns Assessment Noted Time PHQ-9 Depression Total Score: 24 019 1:00 PM CDT documented as of this encounter Care Teams Domestic Technician Relationship Specialty Start Date End Date Lazaro Lopez MD PCP - General Family Medicine 06/06/19 01/09/24 documented as of this encounter
--- OUTSIDE RECORDS SUMMARY | 2025-06-19 14:56 | XMS_ITS | Encounter Summary ---
Author Organization [facility] Address [address] [place] [address] Phone Care Team Providers Care Radiation Control Technician Name Role Phone Lazaro Lopez MD Primary Care Provider [phone] Reason for Visit * Reason Comments Medication Refill Encounter Details Date Type Department Care Team (Late st Contact Info) Description 05/07/2022 Refill [facility] Family Medicine [facility] [address] [place] [address] Lazaro Lopez MD [address] [place] [address] Medication Refill Social History Tobacco Use Types [...] documented as of this encounter Care Teams Radiation Control Technician Relationship Specialty Start Date End Date Lazaro Lopez MD PCP - General Family Medicine 06/06/19 01/09/24 documented as of this encounter
--- OUTSIDE RECORDS SUMMARY | 2025-06-19 14:56 | XMS_ITS | Clinical Summary ---
Author Organization [facility] Address [address] [place] [address] Phone Care Team Providers Care Microbiology Technician Name Role Phone Unavailable Primary Care Provider [...] DAILY. 90 Tablet 3 1 Active nystatin 832373 UNIT/GM Powder APPLY 3 TIMES DAILY. APPLY [...] - PCV) 08/18/2021 08/18/2020 Influenza Immunization (#1) 06/17/202511/2019, 09/10/2019, 08/24/2015 SARS-COV-2 Immunization (1 - season) 2025 Respiratory Syncytial Virus (RSV) Immunization (Adult) (1 [...]
[2025-06-19 20:00] LABS: Add Urine Microscopic? YES; Appearance Urine Turbid (Clear); Glucose Urine UA Negative (Negative); Leukocyte Esterase Ur 1+ LEU/UL (Negative); Need Manual Microscopic Reviewed; Nitrate Urine Positive (Negative); Specific Grav Ur 1.034 (1.001-1.035)
== END 2025-06-19 13:43 | disposition home or self-care (01) ==
LOC: ANHBWCLAB 13:43
PROVIDERS: PCP Nurse Practitioner Adult Health; Visit Provider Nurse Practitioner Adult Health
DX: R39.9 Unspecified symptoms and signs involving the genitourinary system (principal)
CPT/HCPCS: 81001; 87086; 87186

== ENCOUNTER 2025-07-16 14:53 | Outpatient (CLI) | payer OTHER, MEDICAID, SELFPAY ==
[2025-07-16 19:12] LABS: Add Urine Microscopic? YES; Appearance Urine Cloudy (Clear); Glucose Urine UA Negative (Negative); Leukocyte Esterase Ur 1+ LEU/UL (Negative); Nitrate Urine Negative (Negative); Non Pathogenic Casts 0-2; Specific Grav Ur 1.015 (1.001-1.035)
[2025-07-16 19:16] LABS: Hematocrit 42.5 % (37.0-47.0); Hemoglobin 13.5 g/dL (12.0-15.0); Mean Corpuscular HGB Conc 31.8 g/dl (32-36); Mean Corpuscular Hemoglobin 27.8 pg (26-34); Mean Corpuscular Volume 87.6 fl (80-100); Platelet Count Result 378 k/mm3 (150-375); Red Blood Count 4.85 M/mm3 (4.2-5.4); White Blood Count 5.1 K/mm3 (4.5-10.0)
[2025-07-16 19:50] LABS: Alanine Aminotransferase 16 U/L (6-35); Albumin Level 4.1 g/dL (3.5-5.1); Alkaline Phosphatase 74 U/L (38-126); Anion Gap 6 mmol/L (4-12); Aspartate Amino Transferase 53 U/L (14-36); Bilirubin,Total 0.6 mg/dL (0.2-1.3); Blood Urea Nitrogen 6 mg/dL (7-17); Calcium 9.2 mg/dL (8.4-10.2); Carbon Dioxide 28 mmol/L (22-30); Chloride 105 mmol/L (98-107); Cholesterol 234 mg/dL (0-200); Estimated Glomerular Filt Rate > 60; Glucose 106 mg/dL (65-110); HDL Direct 73 mg/dL; Potassium 3.9 mmol/L (3.4-5.0); Sodium 139 mmol/L (137-145); Total Protein 7.3 g/dL (6.3-8.2); Triglycerides 123 mg/dL (<150)
[2025-07-16 20:06] LABS: Free T4 Free Thyroxine 1.03 ng/dL (0.78-2.19)
[2025-07-16 20:27] LABS: Thyroid Stimulating Hormone 2.680 uIU/mL (0.465-4.680)
[2025-07-16 20:46] LABS: Vitamin B12 214.0 pg/mL (239-931)
== END 2025-07-16 14:54 | disposition home or self-care (01) ==
PROVIDERS: PCP Nurse Practitioner Adult Health; Visit Provider Nurse Practitioner Adult Health
DX: E78.5 Hyperlipidemia, unspecified (principal); I10 Essential (primary) hypertension; E55.9 Vitamin D deficiency, unspecified; R39.9 Unspecified symptoms and signs involving the genitourinary system; E07.9 Disorder of thyroid, unspecified; R79.89 Other specified abnormal findings of blood chemistry; Z51.81 Encounter for therapeutic drug level monitoring
CPT/HCPCS: 36415; 80053; 80061; 81001; 82306; 82607; 84439; 84443; 85027; 87086

== ENCOUNTER 2025-07-25 16:09 | Outpatient (CLI) | payer OTHER, MEDICAID, SELFPAY ==
[2025-07-25 19:37] LABS: Add Urine Microscopic? YES; Appearance Urine Cloudy (Clear); Glucose Urine UA Negative (Negative); Leukocyte Esterase Ur 2+ LEU/UL (Negative); Nitrate Urine Negative (Negative); Non Pathogenic Casts 0-2; Specific Grav Ur 1.019 (1.001-1.035)
== END 2025-07-25 16:10 | disposition home or self-care (01) ==
LOC: ANHBWCLAB 16:09
PROVIDERS: PCP Nurse Practitioner Adult Health; Visit Provider Nurse Practitioner Adult Health
DX: R39.9 Unspecified symptoms and signs involving the genitourinary system (principal)
CPT/HCPCS: 81001; 87086